=== PATIENT | female | born 1945 | race Two or more races ===

== ENCOUNTER 2019-06-17 23:24 | Inpatient (IN) | payer MEDICARE, OTHER ==
[~2019-06-17] VITALS: Ht 165.1 cm; Wt 75.7 kg
[~2019-06-17 23:24] MED LIST: PALI234D IM
[2019-06-18] MEDS ORDERED: MAG HYDROX/AL HYDROX/SIMETH 30 ML UDC PO PRN
[2019-06-18] MEDS ORDERED: MAGNESIUM HYDROXIDE 30 ML UDC PO PRN
[2019-06-18] MEDS ORDERED: BLOOD SUGAR DIAGNOSTIC 1 EACH STRIP IN ONE
[2019-06-18] MEDS: TEMAZEPAM 7.5 MG CAPSULE PO PRN ×2 (00:58→21:16)
[2019-06-18] MEDS ORDERED: CLOP75TA15 PO (01:15)
[2019-06-18] MEDS ORDERED: ATOR10TA PO (01:49)
[2019-06-18] MEDS ORDERED: METO25TA4 PO (01:49)
[2019-06-18] MEDS ORDERED: ACET-73 PO (01:49)
[2019-06-18] MEDS ORDERED: TRAZ-182 PO (01:49)
[2019-06-18] MEDS ORDERED: BENA20TA9 PO (01:49)
[2019-06-18] MEDS ORDERED: NITR0.4T48 SL (01:49)
[2019-06-18] MEDS ORDERED: DIVA500T54 PO (01:49)
[2019-06-18] MEDS ORDERED: LEVO88TA5 PO (01:49)
[2019-06-18] MEDS ORDERED: QUET300T5 PO (01:49)
[2019-06-18] MEDS ORDERED: POLY17PO4 PO (01:49)
[2019-06-18] MEDS ORDERED: RANO500T3 PO (01:49)
[2019-06-18] MEDS ORDERED: PANT40TA4 PO (01:49)
[2019-06-18] MEDS ORDERED: FAMO20TA8 PO (01:49)
[2019-06-18 02:00] VITALS: BP 141/70
--- NOTE | 2019-06-18 03:36 | NUR ---
GPS RN NOTE: PT IS A 74 Y/O FEMALE DIRECT ADMIT FROM [facility] ON HOLD 5150 PLACED 06/16/2019 @1103 FOR DTS. [facility] STAFF CALLED POLICE OFFICERS TO EVALUATE THIS PT BECAUSE PT STATED " I DON'T FEEL SAFE, I FEEL LIKE I AM GOING TO HURT MYSELF. I FEEL LIKE I AM GOING TO , I DON'T WANT TO BE BE HERE ANYMORE". PER HOLD PT HAS A HX OF MENTAL ILLNESS (SCHIZOPHRENIA, AND BORDERLINE PERSONALITY DISORDER). PT HAS NOT BEEN ABLE TO SLEEP FOR OVER 48 HOURS, AND HAS A HISTORY OF ATTEMPTED SUICIDE BY OVERDOSE. PT IS CONSERVED BY [facility] PUBLIC GUARDIAN IN [facility]. PT RECENTLY HAD MEDICATION CHANGES TO BOTH MEDICAL AND PSYCHIATRIC MEDICATIONS. UPON FACE TO FACE EVALUATION, PT PRESENTS ALERT AND ORIENTED X2, CALM AND COOPERATIVE, TIRED, DISHEVELLED, APPEARS DEPRESSED, GUARDED, REFUSED TO SIGN ADMISSION PAPERS, SKIN CHECK AND ACCU-CHEK DONE AND DOCUMENTED. DENIES SI AT THIS TIME. PT BELONGINGS AND CONTRABAND CHECKED. PT ADVISED OF HOLD, PT RIGHTS DISCUSSED AND PT HAND BOOK PROVIDED. GUIDE TO PRESCRIPTION MEDICATION GIVEN. PT WILL BE UNDER THE CARE OF DR BROWER PSYCHIATRIST AND DR ONOFRE INTERNAL MEDICINE. PT ORIENTED TO UNIT, STAFF, DOCTORS, CARE PLAN AND UNIT POLICIES. DRS NOTIFIED OF PT ADMISSION. MED RECONCILIATION DONE. MRSA DONE. PT IS LPS CONSERVED. PT [facility] PUBLIC GUARDIAN DIPIKA HAGER PHONE NUMBER NOT PROVIDED. PT IS HYPERTENSIVE, HAS A PACE MAKER ON RIGHT CHEST, HAS RENAL INSUFFICIENCY AND DEPRESSION. Q 15 MINUTES CHECK INITIATED, FALL AND SAFETY PRECAUTION INITIATED. PT SLEEPING COMFORTABLY IN BED. NO S/S OF RESPIRATORY DISTRESS. WILL CONTINUE TO MONITOR FOR MOOD, SAFETY AND BEHAVIOR.
[2019-06-18 07:11] LABS: ALBUMIN 2.9 g/dL (3.4-5.0); CREATININE 1.2 mg/dL (0.6-1.3); POTASSIUM 4.8 mmol/L (3.5-5.1); TOTAL PROTEIN, SERUM 5.7 g/dL (6.4-8.2)
[2019-06-18 07:49] LABS: BILIRUBIN,TOTAL 0.2 mg/dL (0.2-1.0)
[2019-06-18 08:00] VITALS: BP 136/69
--- NOTE | 2019-06-18 13:35 | NUR ---
PUBLIC GUARDIAN CONTACT: MARQUIS contacted pts LPS conservator Ivanna Sancho [phone] and requested Detain and Treat and Hilton 6, 7, and 8. Ivanna stated she would fax Detain and Treat and hilton on this present day.
--- NOTE | 2019-06-18 13:41 | NUR ---
TEACHING ASSISTANTELECTRONIC FIELD SERVICE ENGINEER: SW contacted pts classification case manager at [facility] Eden Lee P: [phone] ex: [phone] and left a voicemail for call back.
--- NOTE | 2019-06-18 13:49 | NUR ---
FACILITY CONTACT: MARQUIS contacted Jesse-firewall administrator at [facility] and [address] [address] P: [phone] and left a voicemail for callback.
--- NOTE | 2019-06-18 15:03 | NUR ---
ETCHER ELECTROLYTICASPHALT PATCHER: SW received a call from pts patient case coordinator, Eden Howard P: [phone] ex: [phone] at [facility] who stated she will assist with scheduling follow up psych appointments for pt once stable for discharge.
--- NOTE | 2019-06-18 15:14 | NUR ---
GROUP NOTE: SW encouraged pt to attend group therapy on this present day discussing "suicidal urges." Pt states that she is very sleepy and has no energy to get up from bed, pt states that she has not slept in 3 days. Pt states that her "head is not right." and that she needs it to be fixed so she wont feel hopeless and sad. Pt states she currently does not know if she is having suicidal urges. SW will continue to assess pts level of suicidality until pt is able to verbalize at least twice daily that she no longer is preoccupied with suicidal thoughts.
--- NOTE | 2019-06-18 15:54 | NUR ---
INITIAL DISCHARGE PLAN: Patient wishes to return to [facility] and [address] [address] P: [phone]. MARQUIS contacted Flakitoem-marketing administrator at [address] [address] P: [phone] and left a voicemail for callback to confirm pt is able to return. MARQUIS will help form a safe and proper discharge in collaboration with .
[2019-06-18 16:00] VITALS: BP 100/67
[2019-06-18 17:32] LABS: APPEARANCE,URINE SL CLOUDY (CLEAR); BILIRUBIN,URINE NEGATIVE (NEGATIVE); BLOOD, URINE LARGE Ery/uL (NEGATIVE); COLOR,URINE YELLOW (YELLOW); KETONES,URINE NEGATIVE (NEGATIVE); LEUKOCYTE ESTERASE ,URINE SMALL (NEGATIVE); NITRITE, URINE NEGATIVE (NEGATIVE); PROTEIN,URINE NEGATIVE (NEGATIVE); UGLUCOSE NEGATIVE (NEGATIVE); UROBILINOGEN,URINE 0.2 EU/dL (0.2)
[2019-06-18 17:41] LABS: BACTERIA,URINE Rare /HPF (None Seen); RBC,URINE 21-50 /HPF (0-2); SQUAMOUS EPITHELIAL CELL,UR Few /HPF (None Seen)
[2019-06-18 18:08] VITALS: BP 163/77
[2019-06-18 20:39] VITALS: BP 140/78
[2019-06-18 20:46] VITALS: BP 140/78
[2019-06-18] MEDS: ATORVASTATIN 10 MG TABLET PO SCH (21:16)
[2019-06-18] MEDS: METOPROLOL SUCCINATE 25 MG TAB.SR.24H PO SCH (21:16)
[2019-06-18] MEDS: MIRTAZAPINE 15 MG TABLET PO SCH (21:17)
[2019-06-18] MEDS: clonazePAM 0.5 MG TABLET PO PRN (22:38)
[2019-06-18] MEDS: ACETAMINOPHEN 325 MG TABLET PO PRN (23:02)
[2019-06-19 07:14] LABS: BASOPHILS % (AUTO) 0.6 % (0.0-2.0); EOSINOPHILS % (AUTO) 1.7 % (0.0-6.0); HEMATOCRIT 35 % (33-45); HEMOGLOBIN 11.6 g/dL (11.5-14.8); LYMPHOCYTES # (AUTO) 1.7 /CMM (0.8-4.8); LYMPHOCYTES % (AUTO) 39.1 % (20.0-44.0); MEAN CORPUSCULAR HGB CONC 33 g/dl (31.0-36.0); MEAN CORPUSCULAR VOLUME 96 fL (82-100); MONOCYTES # (AUTO) 0.5 /CMM (0.1-1.30); MONOCYTES % (AUTO) 11.9 % (2.0-12.0); NEUTROPHILS # (AUTO) 2.1 /CMM (1.8-8.9); NEUTROPHILS % (AUTO) 46.7 % (43.0-81.0); PLATELET COUNT (AUTO) 123 /CMM (150-450); RED BLOOD CELL COUNT(AUTO) 3.63 MIL/uL (4.0-5.2); WHITE BLOOD COUNT (AUTO) 4.4 K/uL (4.3-11.0)
[2019-06-19 07:41] LABS: CREATININE 1.1 mg/dL (0.6-1.3); PHOSPHORUS 3.8 mg/dL (2.5-4.9); POTASSIUM 4.1 mmol/L (3.5-5.1)
[2019-06-19 08:00] VITALS: BP 116/83
[2019-06-19] MEDS: PANTOPRAZOLE 40 MG TABLET.DR PO SCH (08:10)
[2019-06-19] MEDS: LEVOTHYROXINE SODIUM 88 MCG TABLET PO SCH (08:10)
[2019-06-19] MEDS: POLYETHYLENE GLYCOL 3350 17 GM POWD.PACK PO SCH (08:13)
[2019-06-19] MEDS: CLOPIDOGREL BISULFATE 75 MG TABLET PO SCH (08:14)
[2019-06-19] MEDS: BENAZEPRIL HCL 20 MG TABLET PO SCH (08:14)
--- NOTE | 2019-06-19 14:12 | NUR ---
GPS RN NOTE: DR BROWER NOTIFIED OF PT ON INVEGA SUSTENNA 234 MG IM Q28 DAYS LAST GIVEN 05/22/19. NO NEW ORDERS AT THIS TIME.
--- NOTE | 2019-06-19 14:46 | NUR ---
PUBLIC GUARDIAN CONTACT: MARQUIS contacted pts Public Guardian Ivanna Kingsley [phone] to inform her documentation received by her is for Probate Conservatorship not LPS Conservatorship. MARQUIS explained that documentation clearly states that pts is under Public Guardianship for Probate Conservatorship not LPS. Ivanna insisted that she only does LPS conservatorship and that the documents she sent are for LPS and not Probate. MARQUIS requested she fax different documentation which indicates LPS Conservatorship including Detain and Treat and Hilton 6, 7, and 8. MARQUIS stated that in the meantime pt will remain on a 5250 hold. Ivanna stated she would consult with her metal extrusion supervisor and return MARQUIS's call. Addendum: 06/19/19 at 1546 by ROSE MARY CHO MARQUIS received probate conservatorship documents with hilton to ensure that pt receives psychiatric treatment and any treatment for grave disability. Ivanna is insisting [place] probate conservatorship can be used in [facility] for admission to our LPS unit.
--- NOTE | 2019-06-19 15:30 | NUR ---
PUBLIC GUARDIAN CONTACT: MARQUIS received a fax from pts Public Guardian Ivanna Kingsley [phone] requesting pt be taken off 5250 hold and placed on voluntary admission. MARQUIS then received a call from her and MARQUIS explained that due to pt being in [facility] patient rights are different here than in [facility] and thus why MD is currently unable to remove pt from her hold and place on voluntary admission. MARQUIS explained that Fixed Capital Clerk is having Director of Patients Rights for [facility] review documents she faxed to determine weather or not the hospital is able to honor her Probate Conservatorship from [facility] as LPS Conservatorship. Ivanna advised MARQUIS that if the hospital does not honor her documents and pt is released once her hold expires, the hospital is liable for pts discharge. MARQUIS explained that MD has now placed pt on a 5250 hold and stated that pt will not be discharged based on hold expiration and rather be discharged based on pts stability and denial of suicidal ideation. MARQUIS informed Ivanna that pt will be safely discharged back to her board and care in [facility] once stable for discharge. Addendum: 06/19/19 at 1547 by ROSE MARY CHO MARQUIS explained that [facility] does not accept probate conservatorship to enter an LPS unit and stated she cannot authorize psychiatric treatment.
--- NOTE | 2019-06-19 15:55 | NUR ---
GROUP NOTE: SW encouraged pt to participate in group therapy on this present day discussing "social supports." S: "Well I have my sister whom I talk to once in a while and some of the ladies that I live with. I also have my case mgr who helps me once in a while." O: Pt appeared with sad affect and depressed mood, Pts tone of voice was low and pt had difficulty maintaining eye contact. A: Pt has gained awareness in verbalizing her social supports. Pt stated, "I did not realize I have people I can talk to." P: SW will continue to assess pts level of suicidality evidenced in pts decreased suicidal urges by verbalization of absence of suicidal ideation at least twice daily.
[2019-06-19 16:00] VITALS: BP 147/79
--- NOTE | 2019-06-19 16:02 | NUR ---
FACILITY CONTACT: MARQUIS contacted Jesse-subcontract administrator at [facility] and [address] [address] P: [phone] who stated pt is able to return once stable for discharge and is looking forward to welcoming pt back to her home.
[2019-06-19 20:25] VITALS: BP 123/88
[2019-06-19] MEDS: ATORVASTATIN 10 MG TABLET PO SCH (21:20)
[2019-06-19] MEDS: MIRTAZAPINE 15 MG TABLET PO SCH (21:20)
[2019-06-19] MEDS: METOPROLOL SUCCINATE 25 MG TAB.SR.24H PO SCH (21:22)
[2019-06-19] MEDS: ACETAMINOPHEN 325 MG TABLET PO PRN (21:56)
--- NOTE | 2019-06-19 21:58 | NUR ---
PRN TYLENOL GIVEN PATIENT C/O LOWER BACK PAIN, 07/27 AT THIS TIME & REQUESTED TO GET TYLENOL. PRN TYLENOL 650 MG PO GIVEN.
[2019-06-19] MEDS: TEMAZEPAM 7.5 MG CAPSULE PO PRN (23:16)
--- NOTE | 2019-06-19 23:18 | NUR ---
PRN RESTORIL GIVEN PATIENT WALKED TO THE NURSE, STATED," I CAN NOT SLEEP, I TRIED BUT I NEED TO TAKE MY SLEEPING MEDICINE". PRN RESTORIL 7.5 MG 1 CAP PO GIVEN. WILL REASSESS FOR EFFECTIVENESS.
[2019-06-20] MEDS: clonazePAM 0.5 MG TABLET PO PRN ×2 (00:45→23:20)
--- NOTE | 2019-06-20 00:48 | NUR ---
PRN KLONOPIN GIVEN PATIENT STATED SHE IS UNABLE TO SLEEP DUE TO ANXIETY & RESTLESSNESS & REQUESTED TO TAKE ANXIETY MEDICINE, PRN KLONOPIN 0.5 MG 1 TAB PO GIVEN. WILL MONITOR CLOSELY.
[2019-06-20] MEDS: ACETAMINOPHEN 325 MG TABLET PO PRN ×3 (04:40→21:43)
--- NOTE | 2019-06-20 04:41 | NUR ---
PRN TYLENOL GIVEN PATIENT STATED SHE HAS LOWER BACK PAIN & WANTED TO TAKE TYLENOL, PRN TYLENOL 650 MG PO GIVEN. WILL CONTINUE TO MONITOR.
[2019-06-20 08:00] VITALS: BP 110/64
[2019-06-20] MEDS: BENAZEPRIL HCL 20 MG TABLET PO SCH (08:47)
[2019-06-20] MEDS: LEVOTHYROXINE SODIUM 88 MCG TABLET PO SCH (08:47)
[2019-06-20] MEDS: PANTOPRAZOLE 40 MG TABLET.DR PO SCH (08:47)
[2019-06-20] MEDS: POLYETHYLENE GLYCOL 3350 17 GM POWD.PACK PO SCH (08:47)
[2019-06-20] MEDS: CLOPIDOGREL BISULFATE 75 MG TABLET PO SCH (08:48)
[2019-06-20 16:00] VITALS: BP 93/60
[2019-06-20 20:07] VITALS: BP 112/73
[2019-06-20] MEDS: ATORVASTATIN 10 MG TABLET PO SCH (21:04)
[2019-06-20] MEDS: MIRTAZAPINE 15 MG TABLET PO SCH (21:04)
[2019-06-20] MEDS: METOPROLOL SUCCINATE 25 MG TAB.SR.24H PO SCH (21:04)
[2019-06-20] MEDS: TEMAZEPAM 7.5 MG CAPSULE PO PRN (21:40)
[2019-06-21 08:00] VITALS: BP 101/67
[2019-06-21] MEDS: BENAZEPRIL HCL 20 MG TABLET PO SCH (09:00)
[2019-06-21] MEDS: PANTOPRAZOLE 40 MG TABLET.DR PO SCH (09:05)
[2019-06-21] MEDS: CLOPIDOGREL BISULFATE 75 MG TABLET PO SCH (09:05)
[2019-06-21] MEDS: POLYETHYLENE GLYCOL 3350 17 GM POWD.PACK PO SCH (09:06)
[2019-06-21] MEDS: LEVOTHYROXINE SODIUM 88 MCG TABLET PO SCH (09:06)
[2019-06-21] MEDS: ACETAMINOPHEN 325 MG TABLET PO PRN ×2 (15:41→22:52)
--- NOTE | 2019-06-21 15:41 | NUR ---
RN-CO: TYLENOL 650 MG PO FOR BACK PAIN.
[2019-06-21 16:00] VITALS: BP 100/66
[2019-06-21 19:49] VITALS: BP 97/72
[2019-06-21] MEDS: ATORVASTATIN 10 MG TABLET PO SCH (21:25)
[2019-06-21] MEDS: MIRTAZAPINE 15 MG TABLET PO SCH (21:27)
[2019-06-21] MEDS: TEMAZEPAM 7.5 MG CAPSULE PO PRN (22:23)
[2019-06-21] MEDS: METOPROLOL SUCCINATE 25 MG TAB.SR.24H PO SCH (22:31)
[2019-06-21] MEDS: clonazePAM 0.5 MG TABLET PO PRN (22:52)
--- NOTE | 2019-06-22 00:25 | NUR ---
RN NOTES: PT COMPLAINED OF BACK PAIN OF 6/10, TYLENOL 325MG, 2 TABS GIVEN PO. ON REASSESSMENT, PT REPORTS PAIN LEVEL OF 2/10. WILL CONTINUE TO MONITOR
--- NOTE | 2019-06-22 06:28 | NUR ---
RN NOTE PT REFUSED BODY CHECK STATING SHE IS TIRED. WILL ENDORSE TO AM SHIFT.
[2019-06-22] MEDS: LEVOTHYROXINE SODIUM 88 MCG TABLET PO SCH (07:50)
[2019-06-22 08:00] VITALS: BP 139/70
[2019-06-22] MEDS: PANTOPRAZOLE 40 MG TABLET.DR PO SCH (08:08)
[2019-06-22] MEDS: BENAZEPRIL HCL 20 MG TABLET PO SCH (08:08)
[2019-06-22] MEDS: CLOPIDOGREL BISULFATE 75 MG TABLET PO SCH (08:08)
[2019-06-22] MEDS: POLYETHYLENE GLYCOL 3350 17 GM POWD.PACK PO SCH (08:09)
--- NOTE | 2019-06-22 13:20 | NUR ---
RN NOTE: PT C/O 5/10 LEFT SIDED CHEST PAIN. VS: 89/54, 103, 95% RA, 18. UNABLE TO GIVE NITRO D/T DECREASED BP. CALL TO JASMYNE. ORDER FOR STAT CHEST X-RAY, EKG AND TROPONIN. REPEAT BP 114/55, 102, 99%, 19.
[2019-06-22 13:25] VITALS: BP 114/55
[2019-06-22] MEDS: ACETAMINOPHEN 325 MG TABLET PO PRN ×2 (13:27→22:12)
[2019-06-22 13:44] VITALS: BP 117/64
--- NOTE | 2019-06-22 15:20 | NUR ---
RN-CO: Repeat troponin after 6 hours as per order to Steve Medina NP.
--- NOTE | 2019-06-22 15:21 | NUR ---
RN NOTE: TROPONIN ELEVATED AT 0.262. NOTIFIED CACHORRO FLETCHER. ORDER TO REPEAT TROPONIN SIX HOURS AFTER INITIAL DRAW AND FOR CARDIAC CONSULT. PT REPORTS DECREASE IN PAIN OF 1/10 AND IS AMBULATING AROUND THE UNIT WITH NO COMPLAINTS. VS REMAIN STABLE.
[2019-06-22 16:00] VITALS: BP 107/58
[2019-06-22 20:36] VITALS: BP 85/53
[2019-06-22] MEDS: ATORVASTATIN 10 MG TABLET PO SCH (21:22)
[2019-06-22] MEDS: MIRTAZAPINE 15 MG TABLET PO SCH (21:22)
[2019-06-22] MEDS: METOPROLOL SUCCINATE 25 MG TAB.SR.24H PO SCH (22:00)
--- NOTE | 2019-06-22 22:12 | NUR ---
PRN TYLENOL GIVEN PATIENT STATED SHE HAS LOWER BACK PAIN 3 & WANTED TO TAKE TYLENOL, PRN TYLENOL 650 MG PO GIVEN. WILL CONTINUE TO MONITOR.
[2019-06-22] MEDS: TEMAZEPAM 7.5 MG CAPSULE PO PRN (22:22)
--- NOTE | 2019-06-22 22:22 | NUR ---
PRN RESTORIL GIVEN PATIENT STATED," I CAN NOT SLEEP, I NEED SLEEPING MEDICINE & IF YOU DON'T GIVE IT TO ME, I WILL TELL THE DOCTOR." PRN RESTORIL 7.5 MG 1 CAP PO GIVEN. VITALS ARE STABLE AT THIS TIME. DENIED ANY CHEST PAIN WELL. WILL MONITOR CLOSELY.
--- NOTE | 2019-06-22 22:35 | NUR ---
PATIENT REFUSED METOPROLOL SUCCINATE ER TAB PATIENT REFUSED METOPROLOL SUCCINATE ER TAB DUE TO DECREASED BP EPISODES, PATIENT'S BP WAS DECREASED DURING AM SHIFT & AT 1999 85/53, 99, 18, 97.7, 98% AT RA. RECHECKED BP & NOTED 111/55, 96, 18, 97.4, 96% AT RA BUT DESPITE OF RISKS & BENEFITS EXPLANATIONS, PATIENT STATED," I DO NOT WANT BP MEDICATION, IT MAKES ME FEEL WEIRD, I FELT WEAK WHEN MY BP WAS LOW & I DON'T MY BP TO BE LOW AGAIN BECAUSE OF THIS MEDICINE." PATIENT WAS GIVEN PLENTY OF PO FLUIDS & SNACKS TOLERATED. DENIED CHEST PAIN AT THIS TIME. NO OTHER SYMPTOMS VERBALIZED BY THE PATIENT. ANXIOUS & RESTLESS AT TIMES. WILL MONITOR CLOSELY FOR ANY CHANGES.
--- NOTE | 2019-06-22 23:28 | NUR ---
GPS RN NOTE PATIENT'S TROPONIN WAS REPEATED & RESULT CAME BACK, DR. ONOFRE WAS NOTIFIED ABOUT TROPONIN RESULT 0.221, REVIEWED MEDS & ORDERED REPEAT TROPONIN IN AM AT 0600. ORDER NOTED & CARRIED OUT. PT. CONTINUED TO DENY CHEST PAIN. BUT KEEP ASKING FOR ALL PRN MEDICATION TO BE GIVEN TO HER. GETS ANXIOUS, RESTLESS, UNCOOPERATIVE AT TIMES. WILL CONTINUE TO MONITOR CLOSELY FOR ANY CHANGES.
[2019-06-22] MEDS: clonazePAM 0.5 MG TABLET PO PRN (23:51)
--- NOTE | 2019-06-22 23:52 | NUR ---
PRN KLONOPIN GIVEN PATIENT STATED SHE IS ANXIOUS & RESTLESS, UNABLE TO SLEEP & WANTED TO TAKE HER ANXIETY MEDICINE. PRN KLONOPIN 0.5 MG 1 TAB PO GIVEN. VITALS ARE 105/62, 87, 20, 97.2, 97% AT RA. DENIED CHEST PAIN, NO OTHER SYMPTOMS VERBALIZED BY THE PT. AT THIS TIME. PT STATED, I FEEL BETTER & I AM MORE AWAKE NOW THAN BEFORE, WEAKNESS GOT BETTER." REMINDED THE PATIENT TO CALL FOR HELP IF NEEDS TO GET OUT OF BED TO PREVENT FALL & PT. VERBALIZED UNDERSTANDING.
[2019-06-23 08:00] VITALS: BP 117/57
[2019-06-23] MEDS: POLYETHYLENE GLYCOL 3350 17 GM POWD.PACK PO SCH (08:38)
[2019-06-23] MEDS: PANTOPRAZOLE 40 MG TABLET.DR PO SCH (08:38)
[2019-06-23] MEDS: BENAZEPRIL HCL 20 MG TABLET PO SCH (08:38)
[2019-06-23] MEDS: LEVOTHYROXINE SODIUM 88 MCG TABLET PO SCH (08:38)
[2019-06-23] MEDS: CLOPIDOGREL BISULFATE 75 MG TABLET PO SCH (08:38)
[2019-06-23] MEDS: ACETAMINOPHEN 325 MG TABLET PO PRN (11:53)
[2019-06-23] MEDS: clonazePAM 0.5 MG TABLET PO PRN (12:49)
[2019-06-23] MEDS: NITROGLYCERIN 0.4 MG/TAB BOTTLE SL PRN ×2 (13:17→13:25)
[2019-06-23 13:25] VITALS: BP 70/33
--- NOTE | 2019-06-23 13:30 | NUR ---
RN-CO: DR ERICKA MILLS MADE AWARE THAT PATIENT IS C/O CHEST PAIN 4/10 NOT RELIEVED BY 3 DOSES OF NITRO GLYCERIN TABLE. BP WAS 83/55,108,17,94%. MD ORDERED TO DISCHARGE PATIENT TO [facility] ER FOR FURTHER EVALUATION. PLACED PATIENT ON [place] POSITION, BP REMAINS UNCHANGED. PATIENT ALSO HAS POOR PO INTAKE IN SPITE OF ENCOURAGEMENT TO DRINK AND EAT. SHE IS ALERT AND ORIENTED X3-4. HOWEVER LOOK PALE AND WEAK.
--- NOTE | 2019-06-23 13:58 | NUR ---
RN-CO: DR BROWER MADE AWARE THAT PATIENT WILL BE DISCHARGE TO E.R. FOR CHEST PAIN. HE ORDERED TO DISCHARGE PATIENT TO ED WELL. CONTINUE PSYCH MEDS UNLESS CONTRAINDICATED.\
--- NOTE | 2019-06-23 14:07 | NUR ---
RN-CO: PRIMARY RN KAVITHA CALLED CONSERVATOR TO LEFT MESSAGE THAT PATIENT WILL BE SEND TO ER FOR LOW BP 85/55, 108,17,08/27.
--- NOTE | 2019-06-23 14:10 | NUR ---
RN-CO: PATIENT WAS DISCHARGED TO ER, WITH PRIMARY RN AND CNC MACHINE SETTER. REPORT WILL BE GIVEN RN TO RN.
--- NOTE | 2019-06-23 14:45 | NUR ---
PUBLIC GUARDIAN CONTACT: MARQUIS contacted pts Public Guardian Ivanna Kingsley [phone] and left a voicemail informing her that pt was transferred to the ED due to chest pains.
[2019-06-23] MEDS ORDERED: RANI150T8 PO (15:01)
== END 2019-06-23 14:12 | disposition short-term general hospital (02) | DRG 885 ==
LOC: GPS 23:24
PROVIDERS: ADMIT Psychiatry & Neurology Psychiatry; ATTEND Nurse Practitioner Acute Care
DX: F33.2 Major depressive disorder, recurrent severe without psychotic features (principal); I21.4 Non-ST elevation (NSTEMI) myocardial infarction; E44.0 Moderate protein-calorie malnutrition; F23 Brief psychotic disorder; F41.9 Anxiety disorder, unspecified; I10 Essential (primary) hypertension; E78.5 Hyperlipidemia, unspecified; F25.9 Schizoaffective disorder, unspecified; R73.9 Hyperglycemia, unspecified; Z68.27 Body mass index [BMI] 27.0-27.9, adult; R01.1 Cardiac murmur, unspecified; Z95.0 Presence of cardiac pacemaker
CPT/HCPCS: 36415; 71045-TC; 80048-TC; 80053-TC; 80061-TC; 81000-TC; 82962-TC; 83735-TC; 84100-TC; 84484-TC; 85025-TC; 87081-TC; 87086-TC; 97116-TC; 97530-TC

== ENCOUNTER 2019-06-23 14:14 | Inpatient (IN) | payer MEDICARE, OTHER ==
[~2019-06-23] VITALS: Ht 162.6 cm; Wt 75.9 kg
[~2019-06-23 14:14] MED LIST changes: +ACET-73 PO; +ATOR10TA PO; +BENA20TA9 PO; +CLOP75TA15 PO; +DIVA500T54 PO; +LEVO88TA5 PO; +METO25TA4 PO; +NITR0.4T48 SL; +PANT40TA4 PO; +POLY17PO4 PO; +QUET300T5 PO
[2019-06-23] MEDS ORDERED: ONDANSETRON HCL/PF 4 MG/2 ML VIAL ONE (14:39)
--- NOTE | 2019-06-23 14:41 | NUR ---
BLOOD DRAWN AND SENT TO LAB FOR TESTING.
[2019-06-23 14:42] LABS: BASOPHILS # (AUTO) 0.1 /CMM (0.0-0.2); BASOPHILS % (AUTO) 1.7 % (0.0-2.0); EOSINOPHILS % (AUTO) 1.3 % (0.0-6.0); HEMATOCRIT 32 % (33-45); HEMOGLOBIN 10.6 g/dL (11.5-14.8); LYMPHOCYTES # (AUTO) 0.8 /CMM (0.8-4.8); LYMPHOCYTES % (AUTO) 16.2 % (20.0-44.0); MEAN CORPUSCULAR HGB CONC 33 g/dl (31.0-36.0); MEAN CORPUSCULAR VOLUME 97 fL (82-100); MONOCYTES # (AUTO) 0.5 /CMM (0.1-1.30); MONOCYTES % (AUTO) 10.5 % (2.0-12.0); NEUTROPHILS # (AUTO) 3.5 /CMM (1.8-8.9); NEUTROPHILS % (AUTO) 70.3 % (43.0-81.0); PLATELET COUNT (AUTO) 171 /CMM (150-450); RED BLOOD CELL COUNT(AUTO) 3.32 MIL/uL (4.0-5.2)
[2019-06-23] MEDS: ONDANSETRON HCL/PF 4 MG/2 ML VIAL IVP ONE ×2 (14:42→14:43)
[2019-06-23] MEDS: IV NS 0.9% 500 ML BAG IV ONE ×2 (14:42→14:43)
--- NOTE | 2019-06-23 14:42 | NUR ---
PT CAME TO ER FROM [facility] C/O L SIDED CHEST PAIN SINCE YESTERDAY. PT STATES THAT IT HAS BEEN INTERMITTEN PAIN. AAOX3. NO SOB. BREATHING EVENLY AND UNLABORED ON ROOM AIR. CONNECTED TO MONITOR.
[2019-06-23 14:48] LABS: CALCIUM, SERUM 8.9 mg/dL (8.5-10.1); CARBON DIOXIDE 26 mmol/L (21-32); CHLORIDE 107 mmol/L (98-107); CREATININE 1.5 mg/dL (0.6-1.3); GLUCOSE 173 mg/dL (74-106); POTASSIUM 4.5 mmol/L (3.5-5.1); SODIUM SERUM 142 mmol/L (136-145); UREA NITROGEN, BLOOD 25 mg/dL (7-18)
--- NOTE | 2019-06-23 14:51 | NUR ---
XRAY AT BEDSIDE.
[2019-06-23] MEDS ORDERED: RANI150T8 PO (15:01)
--- NOTE | 2019-06-23 15:57 | NUR ---
called to give report, nurse says he's busy call back in 5-10minutes.
--- NOTE | 2019-06-23 16:07 | NUR ---
REPORT GIVEN TO MUSA CONNELLY FOR NESHA.
[2019-06-23 16:15] VITALS: BP 110/55
--- NOTE | 2019-06-23 16:15 | NUR ---
RECEIVED PATIENT FROM ER VIA GURNEY. PATIENT IS A/OX 3, ABLE TO MAKE NEEDS KNOWN. NOT IN ANY FORM OF DISTRESS. NO SOB. CHEST PAIN 5/10 DULL,NON RADIATING. OFFERED PAIN MEDICATIONS BUT PATIENT SAID THAT ITS TOLERABLE FOR NOW AND "ILL TAKE IT AT BEDTIME". PLACED ON TELEMONITOR, SR 83. SITUATED THE PATIENT AND ORIENTED IN THE ROOM. SHOWED HOW TO USE THE CALL LIGHT AND INSTRUCTED TO CALL FOR ASSISTANCE. BELONGINGS CHECKED BY MIHAELA MAN, AND NOTED ON THE BELONGINGS FORM. KEPT PATIENT SAFE AND COMFORTABLE. BED IN LOW/LOCKED PSOITION, SIDERAILS UPX2, CALL LIGHT IN REACH. WILL CONTINUE TO MONITOR ACCORDINGLY.
[2019-06-23] MEDS ORDERED: ONDANSETRON HCL/PF 4 MG/2 ML VIAL IVP PRN (18:30)
[2019-06-23] MEDS ORDERED: Z GUARD REMEDY 2 OZ OINT TP PRN (18:30)
[2019-06-23] MEDS ORDERED: TEMAZEPAM 7.5 MG CAPSULE PO PRN (18:39)
--- NOTE | 2019-06-23 19:30 | NUR ---
RN CLOSING NOTES PATIENT IN STABLE CONDITION. ALL NEEDS ATTENDED AND PROVIDED. ASSISTED PATIENT WITH ADLS. KEPT PATIENT SAFE AND COMFORTABLE. BED IN LOW/LOCKED POSITION, SIDERAILS UPX2, CALL LIGHT IN REACH. ENDORSED ACCORDINGLY.
[2019-06-23 20:00] VITALS: BP 95/53
--- NOTE | 2019-06-23 20:13 | NUR ---
SURGICAL APPLIANCES SALESPERSON NOTES RECEIVED PATIENT AWAKE IN BED WITH NO DISTRESS NOTED. CALL LIGHT WITHIN REACH. ONGOING TELE MONITORING SHOWING SR @87 BPM. NO C/O CHEST PAIN OR DISCOMFORT. PERIPHERAL LINE INTACT AND PATENT. BED IN LOW LOCK SETTING WITH BED ALARM ON AND FUNCTIONING PROPERLY. ROOM FREE OF CLUTTER AND BELONGINGS KEPT NEAR BEDSIDE. WILL CONTINUE TO MONITOR.
[2019-06-23] MEDS ORDERED: DIVALPROEX SODIUM 500 MG TABLET.DR PO SCH (22:00)
[2019-06-23] MEDS ORDERED: METOPROLOL SUCCINATE 25 MG TAB.SR.24H PO SCH (22:00)
[2019-06-23] MEDS: MIRTAZAPINE 15 MG TABLET PO SCH (22:09)
[2019-06-23] MEDS: ACETAMINOPHEN 325 MG TABLET PO PRN (22:09)
[2019-06-23] MEDS: ATORVASTATIN 10 MG TABLET PO SCH (22:09)
[2019-06-24 04:00] VITALS: BP 98/49
[2019-06-24] MEDS: ACETAMINOPHEN 325 MG TABLET PO PRN (04:34)
--- NOTE | 2019-06-24 06:15 | NUR ---
PHYSICAL SCIENCES INSTRUCTOR NOTES PATIENT ASLEEP IN BED WITH NO DISTRESS NOTED. CALL LIGHT WITHIN REACH. ALL DUE MEDS GIVEN ORDERED WITH NO ASE. NO FURTHER C/O GENERALIZED PAIN OR DISCOMFORT. PERIPHERAL LINE INTACT AND PATENT. ROOM FREE OF CLUTTER AND BELONGINGS KEPT NEAR BEDSIDE. WILL ENDORSE TO ONCOMING SHIFT.
[2019-06-24 06:43] LABS: EOSINOPHILS % (AUTO) 2.8 % (0.0-6.0); HEMATOCRIT 29 % (33-45); HEMOGLOBIN 9.8 g/dL (11.5-14.8); LYMPHOCYTES # (AUTO) 1.4 /CMM (0.8-4.8); LYMPHOCYTES % (AUTO) 33.6 % (20.0-44.0); MEAN CORPUSCULAR HGB CONC 33 g/dl (31.0-36.0); MEAN CORPUSCULAR VOLUME 97 fL (82-100); MONOCYTES # (AUTO) 0.6 /CMM (0.1-1.30); MONOCYTES % (AUTO) 13.3 % (2.0-12.0); NEUTROPHILS # (AUTO) 2.1 /CMM (1.8-8.9); NEUTROPHILS % (AUTO) 49.3 % (43.0-81.0); PLATELET COUNT (AUTO) 162 /CMM (150-450); RED BLOOD CELL COUNT(AUTO) 3.02 MIL/uL (4.0-5.2); WHITE BLOOD COUNT (AUTO) 4.2 K/uL (4.3-11.0)
[2019-06-24 07:06] LABS: CHOLESTEROL 136 mg/dL (<200); HDL CHOLESTEROL 47 mg/dL (40-60); LDL 61 mg/dL (0-99); THYROID STIMULATING HORMONE 2.985 uIU/mL (0.358-3.74); TRIGLYCERIDES 137 mg/dL (30-150)
[2019-06-24 07:11] LABS: ALANINE AMINOTRANSFERASE 24 U/L (12-78); ALBUMIN 2.4 g/dL (3.4-5.0); ALKALINE PHOSPHATASE 48 U/L (46-116); ASPARTATE AMINOTRANSFERASE 19 U/L (15-37); BILIRUBIN,TOTAL 0.2 mg/dL (0.2-1.0); CALCIUM, SERUM 8.3 mg/dL (8.5-10.1); CARBON DIOXIDE 25 mmol/L (21-32); CHLORIDE 108 mmol/L (98-107); CREATININE 1.4 mg/dL (0.6-1.3); GLUCOSE 106 mg/dL (74-106); MAGNESIUM 2.2 mg/dL (1.8-2.4); POTASSIUM 4.1 mmol/L (3.5-5.1); SODIUM SERUM 141 mmol/L (136-145); TOTAL PROTEIN, SERUM 5.4 g/dL (6.4-8.2); UREA NITROGEN, BLOOD 20 mg/dL (7-18)
--- NOTE | 2019-06-24 07:30 | NUR ---
MANNEQUIN MOUNTER NOTES PT IN BED, ASLEEP, NO SIGN OF PAIN OR DISTRESS, RESPIRATIONS NORMAL, CALL LIGHT WITHIN REACH, KEPT WARM AND COMFORTABLE IN BED.
[2019-06-24 08:00] VITALS: BP 95/40
[2019-06-24] MEDS ORDERED: BENAZEPRIL HCL 20 MG TABLET PO SCH (09:00)
[2019-06-24 09:09] LABS: IRON, SERUM 18 ug/dl (50-175); TOTAL IRON BINDING CAPACITY 225 ug/dl (250-450)
[2019-06-24] MEDS: POLYETHYLENE GLYCOL 3350 17 GM POWD.PACK PO SCH (11:07)
[2019-06-24] MEDS: PANTOPRAZOLE 40 MG TABLET.DR PO SCH (11:07)
[2019-06-24] MEDS: CLOPIDOGREL BISULFATE 75 MG TABLET PO SCH (11:07)
[2019-06-24] MEDS: LEVOTHYROXINE SODIUM 88 MCG TABLET PO SCH (11:07)
[2019-06-24] MEDS: ENOXAPARIN SODIUM 40 MG/0.4 ML DISP.SYRIN SQ SCH (11:08)
[2019-06-24 16:00] VITALS: BP 90/41
--- NOTE | 2019-06-24 18:41 | NUR ---
RN MS NOTES PT AWAKE, ALERT AND ORIENTED, SITTING IN HER BED, STATED THAT SHE IF FEELING BETTER, ABLE TO WALK ALONG THE HALLWAY WITH A WALKER WITH STEADY GAIT, TOLERATES CURRENT DIET, COMPLIANT WITH CARE AND MEDICATIONS, NO BEHAVIOR PROBLEM, REQUESTED MEDICAL RECORDS FROM [facility], PT GAVE CONSENT.
--- NOTE | 2019-06-24 19:10 | NUR ---
MS RN NOTES RECEIVED PT IN BED AWAKE AND ABLE TO MAKE NEEDS KNOWN. PT A/O X3. RESPIRATIONS EVEN AND UNLABORED WITH NO S/S OF ACUTE DISTRESS OR SOB NOTED. NO COMPLAINTS OF PAIN AT THIS TIME. PT NOTED WITH LAC #18G PATENT AND INTACT AND SL. SAFETY MEASURES IN PLACE WITH BED IN LOWEST LOCKED POSITION WITH SIDE RAILS UP X2. CALL LIGHT WITHIN REACH. WILL CONTINUE TO MONITOR.
[2019-06-24 20:39] VITALS: BP 113/61
[2019-06-24] MEDS: ATORVASTATIN 10 MG TABLET PO SCH (21:56)
[2019-06-24] MEDS: METOPROLOL SUCCINATE 25 MG TAB.SR.24H PO SCH (21:56)
[2019-06-24] MEDS: MIRTAZAPINE 15 MG TABLET PO SCH (21:56)
[2019-06-24] MEDS: clonazePAM 0.5 MG TABLET PO PRN (23:22)
--- NOTE | 2019-06-25 07:07 | NUR ---
MS RN NOTES PT IN BED AWAKE AND ABLE TO MAKE NEEDS KNOWN. PT A/O X3. RESPIRATIONS EVEN AND UNLABORED WITH NO S/S OF ACUTE DISTRESS OR SOB THROUGHOUT SHIFT. NO COMPLAINTS OF PAIN AT THIS TIME. PT NOTED WITH LAC #18G PATENT AND INTACT AND SL. SAFETY MEASURES IN PLACE WITH BED IN LOWEST LOCKED POSITION WITH SIDE RAILS UP X2. CALL LIGHT WITHIN REACH. WILL ENDORSE TO ONCOMING NURSE FOR NESHA.
--- NOTE | 2019-06-25 07:20 | NUR ---
MS RN OPENING NOTES RECEIVED PATIENT ASLEEP IN BED, AROUSABLE TO VERBAL AND TACTILE STIMULI. NO SOB. DENIES ANY C/O PAIN NOR DISCOMFORT AT THIS TIME. PER PATIENT SLEPT WELL LAST NIGHT. LEFT AC # 18 SL INTACT AND PATENT. BED IN LOWEST POSITION, LOCKED. BED ALARM ON. BED SIDERAILS UP X2. CALL LIGHT WITHIN REACH.
[2019-06-25 08:00] VITALS: BP 98/70
[2019-06-25] MEDS: LEVOTHYROXINE SODIUM 88 MCG TABLET PO SCH (08:37)
[2019-06-25] MEDS: CLOPIDOGREL BISULFATE 75 MG TABLET PO SCH ×2 (08:37→08:49)
[2019-06-25] MEDS: PANTOPRAZOLE 40 MG TABLET.DR PO SCH (08:37)
[2019-06-25] MEDS: POLYETHYLENE GLYCOL 3350 17 GM POWD.PACK PO SCH (08:46)
[2019-06-25] MEDS: ENOXAPARIN SODIUM 40 MG/0.4 ML DISP.SYRIN SQ SCH (08:50)
[2019-06-25 11:36] LABS: BASOPHILS % (AUTO) 0.8 % (0.0-2.0); HEMATOCRIT 29 % (33-45); HEMOGLOBIN 9.6 g/dL (11.5-14.8); LYMPHOCYTES # (AUTO) 1.1 /CMM (0.8-4.8); LYMPHOCYTES % (AUTO) 30.2 % (20.0-44.0); MEAN CORPUSCULAR HGB CONC 33 g/dl (31.0-36.0); MEAN CORPUSCULAR VOLUME 96 fL (82-100); MONOCYTES # (AUTO) 0.5 /CMM (0.1-1.30); MONOCYTES % (AUTO) 12.5 % (2.0-12.0); NEUTROPHILS % (AUTO) 53.5 % (43.0-81.0); PLATELET COUNT (AUTO) 176 /CMM (150-450); RED BLOOD CELL COUNT(AUTO) 3.05 MIL/uL (4.0-5.2); WHITE BLOOD COUNT (AUTO) 3.8 K/uL (4.3-11.0)
[2019-06-25 12:44] LABS: CALCIUM, SERUM 8.8 mg/dL (8.5-10.1); CREATININE 1.2 mg/dL (0.6-1.3); POTASSIUM 4.3 mmol/L (3.5-5.1)
[2019-06-25 12:50] LABS: ALBUMIN 2.7 g/dL (3.4-5.0); BILIRUBIN,TOTAL 0.2 mg/dL (0.2-1.0); PHOSPHORUS 4.8 mg/dL (2.5-4.9); TOTAL PROTEIN, SERUM 5.2 g/dL (6.4-8.2)
[2019-06-25] MEDS: clonazePAM 0.5 MG TABLET PO PRN ×2 (13:47→22:03)
--- NOTE | 2019-06-25 13:47 | NUR ---
MS RN NOTES PATIENT C/O DIZZINESS, B/P CHECKED LYING 111/69 HR: 79; SITTING 106/70 HR: 81; STANDING 118/70 HR: 86. PER PATIENT, "I'M JUST A LITTLE ANXIOUS AND I GET DIZZY WHEN I DO, I USUALLY TAKE KLONOPIN."
[2019-06-25] MEDS ORDERED: NITROGLYCERIN 0.4 MG/TAB BOTTLE SL ONE (17:00)
[2019-06-25] MEDS ORDERED: METOPROLOL TARTRATE INJ 5 MG/5 ML AMPUL IVP ONE (17:00)
[2019-06-25] MEDS ORDERED: IV NS 0.9% 500 ML IV PRN (17:00)
[2019-06-25] MEDS ORDERED: CT SWABBABLE VALVE TRANS SET 1 EA INFUS.SET MC ONE (17:15)
[2019-06-25] MEDS ORDERED: IOHEXOL-350 100 ML VIAL IV ONE (17:15)
[2019-06-25] MEDS ORDERED: IV NS 0.9% 250 ML IV ONE (17:15)
[2019-06-25] MEDS ORDERED: METOPROLOL TARTRATE INJ 5 MG/5 ML AMPUL ONE (17:18)
--- NOTE | 2019-06-25 17:19 | NUR ---
MS RN NOTES PATIENT OFF UNIT FOR CTCA
--- NOTE | 2019-06-25 18:40 | NUR ---
ICU/RN: Pt s/p CTA. Tolerated well. Metoprolol 5mg IVP x1 administered, Nitroglycerin 0.4 mg SL administered. Unable to scan meds in CT room. Pt c/o lower back pain requesting tylenol. Bedside report given to MARICEL Magallanes for NESHA.
--- NOTE | 2019-06-25 18:44 | NUR ---
MS RN NOTES PATIENT RETURNED FROM [facility], EATING DINNER AT THIS TIME. DENIES ANY C/O PAIN NOR DISCOMFORT.
--- NOTE | 2019-06-25 18:44 | NUR ---
MS RN NOTES OFFERED TYLENOL FOR C/O PAIN PER PATIENT HE WILL TAKE IT LATER ON TONIGHT BEFORE SHE GOES TO BED.
--- NOTE | 2019-06-25 18:46 | NUR ---
MS RN CLOSING NOTES ALERT AND ORIENTED X4. NO S/S OF RESPIRATORY DISTRESS. DENIES ANY C/O CHEST PAIN, N/V. AMBULATORY WITH STEADY GAIT WITH THE USE OF WALKER. BED MOBILITY, INDEPENDENT. LEFT AC # 18 SL INTACT AND PATENT. BED IN LOWEST POSITION, LOCKED. BED ALARM ON. BED SIDERAILS UP X2. CALL LIGHT WITHIN REACH. IN NO APPARENT DISTRESS.
[2019-06-25 20:24] VITALS: BP 140/62
[2019-06-25] MEDS: METOPROLOL SUCCINATE 25 MG TAB.SR.24H PO SCH (21:26)
[2019-06-25] MEDS: MIRTAZAPINE 15 MG TABLET PO SCH (21:26)
[2019-06-25] MEDS: ATORVASTATIN 10 MG TABLET PO SCH (21:26)
[2019-06-25] MEDS: ACETAMINOPHEN 325 MG TABLET PO PRN (21:34)
[2019-06-26 07:18] LABS: BASOPHILS % (AUTO) 0.9 % (0.0-2.0); EOSINOPHILS % (AUTO) 3.2 % (0.0-6.0); HEMATOCRIT 30 % (33-45); LYMPHOCYTES # (AUTO) 1.3 /CMM (0.8-4.8); MEAN CORPUSCULAR HGB CONC 33 g/dl (31.0-36.0); MEAN CORPUSCULAR VOLUME 94 fL (82-100); MONOCYTES # (AUTO) 0.4 /CMM (0.1-1.30); MONOCYTES % (AUTO) 11.7 % (2.0-12.0); NEUTROPHILS # (AUTO) 1.8 /CMM (1.8-8.9); NEUTROPHILS % (AUTO) 49.2 % (43.0-81.0); PLATELET COUNT (AUTO) 187 /CMM (150-450); RED BLOOD CELL COUNT(AUTO) 3.18 MIL/uL (4.0-5.2); WHITE BLOOD COUNT (AUTO) 3.8 K/uL (4.3-11.0)
[2019-06-26 07:27] LABS: CALCIUM, SERUM 8.7 mg/dL (8.5-10.1); CARBON DIOXIDE 25 mmol/L (21-32); CHLORIDE 108 mmol/L (98-107); CREATININE 1.3 mg/dL (0.6-1.3); GLUCOSE 123 mg/dL (74-106); MAGNESIUM 2.1 mg/dL (1.8-2.4); PHOSPHORUS 4.9 mg/dL (2.5-4.9); POTASSIUM 3.9 mmol/L (3.5-5.1); SODIUM SERUM 143 mmol/L (136-145); UREA NITROGEN, BLOOD 16 mg/dL (7-18)
--- NOTE | 2019-06-26 07:36 | NUR ---
RN [id number] NOTES RECEIVED PATIENT IN BED RESTING COMFORTABLY IN MODERATE HIGH BACK REST. A/O X3. NO SIGNS OF DISTRESS NOTED AT THIS TIME. IV ACCESS ON LEFT AC #18, SL. PATENT AND INTACT. SAFETY MEASURES IN PLACE, BED IN LOW LOCKED POSITION WITH SIDE RAILS UP X2. CALL LIGHT WITHIN REACH. WILL CONTINUE TO MONITOR.
[2019-06-26 08:00] VITALS: BP 137/67
[2019-06-26] MEDS: LEVOTHYROXINE SODIUM 88 MCG TABLET PO SCH (08:36)
[2019-06-26] MEDS: PANTOPRAZOLE 40 MG TABLET.DR PO SCH (08:36)
[2019-06-26] MEDS: POLYETHYLENE GLYCOL 3350 17 GM POWD.PACK PO SCH (08:37)
[2019-06-26] MEDS: CLOPIDOGREL BISULFATE 75 MG TABLET PO SCH (08:37)
[2019-06-26] MEDS: ENOXAPARIN SODIUM 40 MG/0.4 ML DISP.SYRIN SQ SCH (08:39)
[2019-06-26] MEDS: METOPROLOL TARTRATE 50 MG TABLET PO SCH ×2 (08:40→21:06)
[2019-06-26] MEDS: ACETAMINOPHEN 325 MG TABLET PO PRN ×2 (11:38→21:11)
[2019-06-26 14:08] LABS: APPEARANCE,URINE SL CLOUDY (CLEAR); BILIRUBIN,URINE NEGATIVE (NEGATIVE); BLOOD, URINE TRACE-INTA Ery/uL (NEGATIVE); COLOR,URINE YELLOW (YELLOW); KETONES,URINE NEGATIVE (NEGATIVE); LEUKOCYTE ESTERASE ,URINE NEGATIVE (NEGATIVE); NITRITE, URINE NEGATIVE (NEGATIVE); PROTEIN,URINE NEGATIVE (NEGATIVE); UGLUCOSE NEGATIVE (NEGATIVE); UROBILINOGEN,URINE 0.2 EU/dL (0.2)
[2019-06-26 14:37] LABS: BACTERIA,URINE Rare /HPF (None Seen); SQUAMOUS EPITHELIAL CELL,UR Few /HPF (None Seen); WBC,URINE 0-2 /HPF (0-3)
[2019-06-26 16:00] VITALS: BP 138/75
--- NOTE | 2019-06-26 18:38 | NUR ---
RN CLOSING NOTES PATIENT IN BED RESTING COMFORTABLY IN MODERATE HIGH BACK REST. A/O X3. NO SIGNS OF DISTRESS NOTED THROUGHOUT THE SHIFT. IV ACCESS ON LEFT AC #18, SL. PATENT AND INTACT. WAITING FOR PSYCH CONSULT. MAY DC TO GPS PER DR. MARIA. SAFETY MEASURES IN PLACE, BED IN LOW LOCKED POSITION WITH SIDE RAILS UP X2. CALL LIGHT WITHIN REACH. WILL ENDORSE TO MILK COLLECTOR NURSE FOR NESHA.
--- NOTE | 2019-06-26 19:30 | NUR ---
MS RN OPENING NOTES PATIENT AWAKE IN BED. A/OX 3. ABLE TO VERBALIZE NEEDS. ON ROOM AIR. NO S/S OF ACUTE RESPIRATORY DISTRESS AND NO COMPLAINTS OF PAIN AT THIS TIME. IV PRESENT ON LEFT AC, SIZE 18, HEP LOCKED. BED LOCKED, SIDE RAILS X2, CALL LIGHT WITHIN REACH. WILL CONTINUE TO MONITOR.
[2019-06-26 20:00] VITALS: BP 114/64
[2019-06-26] MEDS: clonazePAM 0.5 MG TABLET PO PRN (21:05)
[2019-06-26] MEDS: MIRTAZAPINE 15 MG TABLET PO SCH (21:06)
[2019-06-26] MEDS: ATORVASTATIN 10 MG TABLET PO SCH (21:06)
--- NOTE | 2019-06-27 07:13 | NUR ---
MS RN CLOSING NOTES PATIENT ASLEEP IN BED, EASY TO AWAKEN. A/OX3. ON 2L NC. NO S/S OF ACUTE RESPIRATORY DISTRESS AND NO COMPLAINTS OF PAIN AT THIS TIME. IV PRESENT ON LEFT AC, SIZE 18, INTACT & PATENT, HEP LOCKED. BED LOCKED, SIDE RAILS X2, CALL LIGHT WITHIN REACH. WILL ENDORSE TO DAY SHIFT NURSE TO FOLLOW PLAN OF CARE.
--- NOTE | 2019-06-27 07:47 | NUR ---
MS/RN OPENING NOTE Patient is resting in bed, A/O x3, showing no signs of acute distress or SOB at the moment, saturating well on 2L NC. IV line is clean and intact s/l. Patient is able to ambulate with walker. According to shift coordinator RN Luis Alberto, patient has a discharrge order, however, patient is to be consulted with Psych Dr. Rao to possible DC to GPS. Bed is in lowest position, side rails x3, call light is within reach and patient is aware of how to call for assistance when needed. Will continue with plan of care.
[2019-06-27] MEDS: PANTOPRAZOLE 40 MG TABLET.DR PO SCH (08:16)
[2019-06-27] MEDS: LEVOTHYROXINE SODIUM 88 MCG TABLET PO SCH (08:16)
[2019-06-27] MEDS: CLOPIDOGREL BISULFATE 75 MG TABLET PO SCH (08:16)
[2019-06-27] MEDS: ACETAMINOPHEN 325 MG TABLET PO PRN (08:16)
[2019-06-27] MEDS: POLYETHYLENE GLYCOL 3350 17 GM POWD.PACK PO SCH (08:17)
[2019-06-27] MEDS: ENOXAPARIN SODIUM 40 MG/0.4 ML DISP.SYRIN SQ SCH (08:21)
[2019-06-27 08:22] VITALS: BP 122/72
[2019-06-27] MEDS: METOPROLOL TARTRATE 50 MG TABLET PO SCH (08:22)
--- NOTE | 2019-06-27 10:34 | NUR ---
MS/RN NOTE Patient seen by Psych Dr. Xavier. Ok per MD to discharge patient to GPS. Charge nurse made aware.
== END 2019-06-27 12:30 | DRG 280 ==
LOC: ER 14:21 → TELE 15:58 → MED 06-24 11:51
PROVIDERS: ADMIT Nurse Practitioner Acute Care; ATTEND Nurse Practitioner Acute Care
DX: I21.4 Non-ST elevation (NSTEMI) myocardial infarction (principal); N17.0 Acute kidney failure with tubular necrosis; I50.33 Acute on chronic diastolic (congestive) heart failure; I11.0 Hypertensive heart disease with heart failure; I25.10 Atherosclerotic heart disease of native coronary artery without angina pectoris; I25.2 Old myocardial infarction; E78.5 Hyperlipidemia, unspecified; Z88.6 Allergy status to analgesic agent; Z88.8 Allergy status to other drugs, medicaments and biological substances; Z79.02 Long term (current) use of antithrombotics/antiplatelets; Z95.0 Presence of cardiac pacemaker; Z79.899 Other long term (current) drug therapy; D64.9 Anemia, unspecified; E03.9 Hypothyroidism, unspecified; Z95.2 Presence of prosthetic heart valve; E83.39 Other disorders of phosphorus metabolism; F32.9 Major depressive disorder, single episode, unspecified; F39 Unspecified mood [affective] disorder; Z98.61 Coronary angioplasty status
CPT/HCPCS: 36415; 71045-TC; 75574; 80048-TC; 80053-TC; 80061-TC; 81000-TC; 83540-TC; 83735-TC; 84100-TC; 84443-TC; 84484-TC; 85025-TC; 85730-TC; 87081-TC; 93307-TC; G0378; J1650; J2405; J3490; J7040; J7050; Q9967

== ENCOUNTER 2019-06-27 11:32 | Inpatient (IN) | payer MEDICARE, OTHER ==
[~2019-06-27] VITALS: Ht 162.6 cm; Wt 75.7 kg
[~2019-06-27 11:32] MED LIST changes: -PALI234D IM; -QUET300T5 PO; +RANI150T8 PO
--- NOTE | 2019-06-27 12:30 | NUR ---
MS/WEB ARCHITECT NOTE Patient is medically stable for discharge, A/O x4, in no acute distress, saturating 94% on RA. Vital signs WNL. Patient refused skin assessment. All due meds given, all patient needs met. Patient has urinated and made 1 bowel movement, ambulated to bathroom using walker. DC instructions provided, patient verbalized understanding. Patient has all belongings with them. IV line removed, ID band removed. Report given to Stefan CONNELLY at [facility]. is aware of discharge. Patient left unit via wheelchair to GPS.
--- NOTE | 2019-06-27 13:00 | NUR ---
ADMISSION NOTES: ADMITTED THIS 74Y/O FEMALE PATIENT ADMIT FROM [facility]. PT IS CONSERVED. DENIES SI /HI AT THIS TIME, PT. REFUSED INITIAL BLOOD SUGAR CHECK , BOTH MD AWARE AND NOTIFIED OF THE ADMISSION, BELONGINGS CONTRABAND WERE DONE , CONSERVATOR AWARE OF ADMISSION ,PT. RIGHTS DISCUSS BY SALES CORRESPONDENCE CLERK , PROVIDED THE PT. WITH HANDBOOK, AND MEDICATIONS GUIDE, ENVIRONMENTAL SAFETY CHECK DONE, ENCOURAGED PT. VERBALIZED ANY FEELING OR CONCERNS TO STAFF, ORIENTED TO UNIT POLICY, NO ACUTE DISTRESS NOTED,VITAL SIGNS WNL ,DENIES ANY PAIN AT THIS TIME,WILL CONTINUE TO MONITOR FOR Q15 SAFETY AND BEHAVIOR.
--- NOTE | 2019-06-27 13:18 | NUR ---
Called the conservator Neli Kingsley at [phone] for the notification of the admission and left a message to call.
[2019-06-27] MEDS ORDERED: BLOOD SUGAR DIAGNOSTIC 1 EACH STRIP IN ONE (13:30)
[2019-06-27] MEDS ORDERED: MAGNESIUM HYDROXIDE 30 ML UDC PO PRN (13:30)
[2019-06-27] MEDS ORDERED: MAG HYDROX/AL HYDROX/SIMETH 30 ML UDC PO PRN (13:30)
--- NOTE | 2019-06-27 13:44 | NUR ---
Dr. Rao made aware of the admission and with orders.
[2019-06-27 16:00] VITALS: BP 139/78
[2019-06-27] MEDS ORDERED: MISCELLANEOUS MED 1 EA EA PO PRN (18:30)
[2019-06-27] MEDS ORDERED: NITROGLYCERIN 0.4 MG/TAB BOTTLE SL PRN (18:30)
[2019-06-27] MEDS: ACETAMINOPHEN 325 MG TABLET PO PRN (19:24)
[2019-06-27 20:04] VITALS: BP 133/76
[2019-06-27] MEDS: FAMOTIDINE (20 MG) 20 MG TABLET PO SCH (20:55)
[2019-06-27] MEDS: ATORVASTATIN 10 MG TABLET PO SCH (21:08)
[2019-06-27] MEDS: METOPROLOL SUCCINATE 25 MG TAB.SR.24H PO SCH (21:08)
[2019-06-27] MEDS: clonazePAM 0.5 MG TABLET PO PRN (21:50)
[2019-06-28] MEDS: ACETAMINOPHEN 325 MG TABLET PO PRN ×3 (01:30→22:25)
[2019-06-28 08:00] VITALS: BP 125/69
[2019-06-28 08:21] LABS: CHOLESTEROL 160 mg/dL (<200); HDL CHOLESTEROL 45 mg/dL (40-60); LDL 87 mg/dL (0-99); TRIGLYCERIDES 132 mg/dL (30-150)
[2019-06-28 08:27] LABS: BILIRUBIN,TOTAL 0.3 mg/dL (0.2-1.0); CALCIUM, SERUM 9.3 mg/dL (8.5-10.1); CREATININE 1.2 mg/dL (0.6-1.3); POTASSIUM 4.1 mmol/L (3.5-5.1); TOTAL PROTEIN, SERUM 6.2 g/dL (6.4-8.2)
[2019-06-28] MEDS: CLOPIDOGREL BISULFATE 75 MG TABLET PO SCH (08:34)
[2019-06-28] MEDS: LEVOTHYROXINE SODIUM 88 MCG TABLET PO SCH (08:34)
[2019-06-28] MEDS: PANTOPRAZOLE 40 MG TABLET.DR PO SCH (08:34)
[2019-06-28] MEDS: FAMOTIDINE (20 MG) 20 MG TABLET PO SCH ×2 (08:35→21:01)
[2019-06-28] MEDS: POLYETHYLENE GLYCOL 3350 17 GM POWD.PACK PO SCH (08:36)
[2019-06-28 16:00] VITALS: BP 116/58
--- NOTE | 2019-06-28 18:47 | NUR ---
GPS NOTE THE PATIENT COMPLAINED OF SHORTNESS OF BREATHING. ASSESSED THE PATIENT AND NOTED OXYGEN SATURATION IN ROOM AIR IS AT 98%. RESPIRATION REGULAR AND UNLABORED. BLOOD PRESSURE 143/72, PULSE 70, R 18, T 97.9, PAIN LEVEL 0/10. THE PATIENT IS MADE AWARE. THE PATIENT IS ENCOURAGED TO REST IN BED. THE PATIENT IN BED IN NO APPARENT DISTRESS. WILL ENDORSE TO RAIL MAINTENANCE WORKER TO CONTINUE MONITOR THE PATIENT.
[2019-06-28 20:35] VITALS: BP 136/83
[2019-06-28] MEDS: ATORVASTATIN 10 MG TABLET PO SCH (21:01)
[2019-06-28] MEDS: METOPROLOL SUCCINATE 25 MG TAB.SR.24H PO SCH (21:02)
[2019-06-28] MEDS: MIRTAZAPINE 15 MG TABLET PO SCH (22:02)
--- NOTE | 2019-06-28 22:27 | NUR ---
GPS RN NOTES: PT C/O OF HEADACHE. ASKED PT FROM 1-10 TO RATE PAIN. PT STATED, " A 3. MAY I HAVE TYLENOL PLEASE?" OFFERED TYLENOL 650 MG PO PRN ORDERED. PT TOLERATED MEDICATION WELL CONTINUE TO MONITOR.
[2019-06-29] MEDS: clonazePAM 0.5 MG TABLET PO PRN ×3 (00:12→16:45)
--- NOTE | 2019-06-29 00:14 | NUR ---
GPS RN NOTES; PT C/O FEELING ANXIOUS. PT STATED, "I FEEL ANXIOUS RIGHT NOW. CAN I HAVE MY MEDICATION TO HELP ME WITH THIS?" VITALS WNL. OFFERED KLONOPIN 0.5MG PO PRN ORDERED. PT AGREED AND TOLERATED MEDICATION WELL. CONTINUE TO MONITOR.
--- NOTE | 2019-06-29 00:17 | NUR ---
GPS RN NOTES: PT REFUSED WEEKLY BODY CHECK ASSESSMENT PICTURES. PT STATED, "NO. I REFUSED. " EXPLAIN RISKS AND BENEFITS. STILL REFUSED X3 CONTINUE TO MONITOR.
[2019-06-29] MEDS: ACETAMINOPHEN 325 MG TABLET PO PRN ×3 (06:43→19:02)
--- NOTE | 2019-06-29 06:44 | NUR ---
GPS RN NOTES: PT C/O OF BACK PAIN. ASKED PT FROM 1-10 TO RATE PAIN. PT STATED, " A 3. MAY I HAVE TYLENOL PLEASE?" VITALS WNL. OFFERED TYLENOL 650 MG PO PRN ORDERED. PT TOLERATED MEDICATION WELL CONTINUE TO MONITOR.
[2019-06-29 08:00] VITALS: BP 126/51
[2019-06-29] MEDS: LEVOTHYROXINE SODIUM 88 MCG TABLET PO SCH (08:15)
[2019-06-29] MEDS: FAMOTIDINE (20 MG) 20 MG TABLET PO SCH ×2 (08:15→20:57)
[2019-06-29] MEDS: CLOPIDOGREL BISULFATE 75 MG TABLET PO SCH (08:15)
[2019-06-29] MEDS: PANTOPRAZOLE 40 MG TABLET.DR PO SCH (08:15)
--- NOTE | 2019-06-29 08:16 | NUR ---
PSYCHOSOCIAL NOTE: I, Rose Mary Montano SHOP TAILOR, attest to the patients previous psychosocial information dated 06/18/19 Update On Events leading to Admission and Discharge Plan: Pt has returned to [facility] within 4 days of her previous discharge to Med/Surg. The current plan is to continue stabilizing the patient on her medications and [place] [address] P: [phone] with mental health services and home health to ensure the pts safety. The pt appeared to be somnolent and sedated with a depressed mood with flat affect. Pt appeared to be ambulatory, well-groomed and appropriately dressed. Pt is currently denying any suicidal or homicidal ideation as well as any visual or auditory hallucinations. SW will work with the pt and the MD regarding appropriate discharge planning. SW will form a safe and proper discharge. Addendum: 06/29/19 at 0854 by ROSE MARY CHO Upon arousal, pt is agitated refusing to take medications until she sees the doctor and refusing to cooperate. Pt appears to be having somatic complaints as she is stating her chest hurts but has been medically cleared. It also took 3 nursing staff to wake pt up as she was refusing to open her eyes and was not responding to verbal cues. Pt is stating that she wants to leave. Addendum: 06/29/19 at 0857 by ROSE MARY CHO Labile mood with flat affect.
[2019-06-29] MEDS: POLYETHYLENE GLYCOL 3350 17 GM POWD.PACK PO SCH (08:25)
--- NOTE | 2019-06-29 08:27 | NUR ---
BEEF PUSHERPULLMAN CAR CLERK: SW received a call from pts showcase maker, Eden Howard P: [phone] ex: [phone] at [facility] who stated she will assist with scheduling follow up psych appointments for pt once stable for discharge.
--- NOTE | 2019-06-29 08:27 | NUR ---
PUBLIC GUARDIAN CONTACT: MARQUIS contacted pts Public Guardian Ivanna Kingsley [phone] and left a voicemail informing her pt has returned to the psych unit from Med/Surg.
--- NOTE | 2019-06-29 09:02 | NUR ---
FAMILY CONTACT: SW received a call from pts sister Randi [phone] requesting discharge information. SW informed her that pt is not stable for discharge and that that this morning she she was refusing medication. Sister informed SW that pt is on Invega Sustenna and states that when she is off of it she becomes psychotic and begins refusing medication and treatment. SW informed her that pts case management social worker Eden from [facility] did not inform her that pt receives Invega Sustenna. Sister was upset that medication list was not sent with pt and stated that she will call Eden. SW stated that she will call Eden also to inquire about the dosage and last administered date.
--- NOTE | 2019-06-29 09:13 | NUR ---
SANDSTONE SPLITTEROTC CLERK: SW contacted pts manager of case, Eden Howard P: [phone] ex: [phone] at [facility] and left a voicemail inquiring about Invregi Cunningham. SW requested a call back.
--- NOTE | 2019-06-29 10:32 | NUR ---
RN NOTE: PT VISIBLY AGITATED, HOPELESS AND HELPLESS. CRYING AND IRRITABLE. MEDICATED KLONOPIN 0.5 MG. BP 149/62, 82 PULSE.
--- NOTE | 2019-06-29 12:45 | NUR ---
COLLATERAL CONTACT: MARQUIS received a call from Corky [phone] residential service direction at the [facility] requesting discharge information as pts bed is currently on a hold. MARQUIS stated that pt is not stable and will receive an Invega Sustenna injection on this present day. Corky agreed and requested updated information.
[2019-06-29 16:00] VITALS: BP 118/70
--- NOTE | 2019-06-29 17:00 | NUR ---
PATIENT STATED "I FEEL ANXIETY, I NEED MEDICINE", GIVEN KLONIPINE 0.5MG P.O. PATIENT DOES NO S/S OF RESP DISTRESS OR SOB OBSERVED FROM MEDICINE. WILL CONTINUE TO MONITOR FOR SAFETY.
[2019-06-29 20:17] VITALS: BP 131/72
[2019-06-29] MEDS: METOPROLOL SUCCINATE 25 MG TAB.SR.24H PO SCH (21:01)
[2019-06-29] MEDS: MIRTAZAPINE 15 MG TABLET PO SCH (21:01)
[2019-06-29] MEDS: ATORVASTATIN 10 MG TABLET PO SCH (21:01)
[2019-06-29] MEDS: TEMAZEPAM 7.5 MG CAPSULE PO PRN (21:36)
--- NOTE | 2019-06-29 21:38 | NUR ---
RN NOTES: PT VERY ANXIOUS AND SAYS THAT SHE HAS INSOMNIA WHEN SHE IS HERE AT THE HOSPITAL. PT WAS ADMINISTERED RESTORIL 7.5MG PO. WILL CONTINUE TO MONITOR.
[2019-06-30 00:10] VITALS: BP 118/84
[2019-06-30] MEDS: clonazePAM 0.5 MG TABLET PO PRN ×4 (00:10→21:45)
--- NOTE | 2019-06-30 00:13 | NUR ---
RN NOTES: PT COMPLAINING THAT SHE IS VERY ANXIOUS AND THAT SHE IS THINKING ABOUT WHEN SHE CAN GO HOME. RESTORIL ONLY WORKED FOR A LITTLE BIT AND IS AWAKE. PT ADMINISTERED KLONOPIN 0.5MG PO. WILL CONTINUE TO MONITOR.
[2019-06-30] MEDS: ACETAMINOPHEN 325 MG TABLET PO PRN ×4 (01:08→21:39)
--- NOTE | 2019-06-30 01:08 | NUR ---
RN NOTES: PT COMPLAINING OF A HEADACHE AND REQUESTING FOR TYLENOL. PT WAS ADMINISTERED TYLENOL 650MG PO. WILL CONTINUE TO MONITOR.
[2019-06-30] MEDS: LEVOTHYROXINE SODIUM 88 MCG TABLET PO SCH (07:37)
[2019-06-30] MEDS: PANTOPRAZOLE 40 MG TABLET.DR PO SCH (07:37)
[2019-06-30 08:00] VITALS: BP 100/67
[2019-06-30] MEDS: CLOPIDOGREL BISULFATE 75 MG TABLET PO SCH (08:38)
[2019-06-30] MEDS: POLYETHYLENE GLYCOL 3350 17 GM POWD.PACK PO SCH (08:40)
[2019-06-30] MEDS: FAMOTIDINE (20 MG) 20 MG TABLET PO SCH ×2 (08:40→21:31)
--- NOTE | 2019-06-30 08:40 | NUR ---
RN NOTE: PT C/O ANXIETY AND GENERALIZED PAIN. MEDICATED WITH KLONOPIN 0.5 MG PO AND TYLENOL 650 MG
--- NOTE | 2019-06-30 10:00 | NUR ---
FAMILY CONTACT: MARQUIS received a call from pts sister Randi [phone] requesting updated medication information. MARQUIS informed her that pt has not received Invega Sustenna yet as [facility] pharmacy does not carry that medication. MARQUIS also informed her that MD will be making medication adjustments on this present day after he evaluates her. Sister became upset and stated that she needed to speak to the MD regarding pts medication changes. Sister stated that she did not understand why [facility] did not receive a list of her medications once she was transferred from [place]. MARQUIS re-explained that pts mental health provided failed to notify or [facility] staff that pt was receiving monthly injections. MARQUIS informed her that she will contacting [facility] LPS conservator to discuss this matter. Addendum: 06/30/19 at 1030 by ROSE MARY CHO MARQUIS informed her that MD is considering an alternative antipsychotic that is similar to Invega Sustenna and sister became very upset.
--- NOTE | 2019-06-30 10:15 | NUR ---
PUBLIC GUARDIAN CONTACT: SW contacted pts Public Guardian Ivanna Kingsley [phone] and left a voicemail informing her pts sister Randi has been frequently calling and is now wishing to speak to the MD regarding pts medications.
--- NOTE | 2019-06-30 14:55 | NUR ---
INDIVIDUAL MEETING: SW met with pt and discussed her treatment and discharge plan. SW informed her that MD is currently speaking to her sister regarding her medications and also stated that MD will be discussing a similar medication to Airam Cunningham as the hospital does not carry that medication. Pt agreed and stated that she needs her antipsychotic medication and also states that she really wishes to be discharged this week as she misses her home. Pt denies current suicidal ideation but states she continues to feel anxious and depressed.
[2019-06-30] MEDS: risperiDONE 1 MG TABLET PO SCH (15:58)
[2019-06-30 16:00] VITALS: BP 123/66
--- NOTE | 2019-06-30 16:02 | NUR ---
RN NOTE: PT COMPLAINING OF ANXIETY. REQUESTING MEDICATION PT MEDICATED WITH KLONOPIN 0.5 MG
--- NOTE | 2019-06-30 16:10 | NUR ---
GROUP NOTE: SW encouraged pt to attend group on this present day discussing "unstable mood." Pt refused to attend group stating she was not feeling well. MARQUIS met with pt individually earlier in the day.
[2019-06-30 19:45] VITALS: BP 119/77
[2019-06-30] MEDS: ATORVASTATIN 10 MG TABLET PO SCH (21:30)
[2019-06-30] MEDS: MIRTAZAPINE 15 MG TABLET PO SCH (21:31)
[2019-06-30] MEDS: METOPROLOL SUCCINATE 25 MG TAB.SR.24H PO SCH (21:36)
[2019-07-01] MEDS: clonazePAM 0.5 MG TABLET PO PRN ×2 (05:07→21:22)
--- NOTE | 2019-07-01 05:10 | NUR ---
spinner concrete pipe notes Klonopin po given per pt requested, seem getting anxious , educated patient for possible side effect and pt understood well. kept her warm and comfortable at all times. bed alarm set for pt safety. will continue monitoring.
[2019-07-01 08:00] VITALS: BP 120/60
[2019-07-01] MEDS: CLOPIDOGREL BISULFATE 75 MG TABLET PO SCH (08:05)
[2019-07-01] MEDS: PANTOPRAZOLE 40 MG TABLET.DR PO SCH (08:05)
[2019-07-01] MEDS: LEVOTHYROXINE SODIUM 88 MCG TABLET PO SCH (08:05)
[2019-07-01] MEDS: risperiDONE 1 MG TABLET PO SCH ×2 (08:05→16:46)
[2019-07-01] MEDS: FAMOTIDINE (20 MG) 20 MG TABLET PO SCH ×2 (08:05→21:15)
[2019-07-01] MEDS: POLYETHYLENE GLYCOL 3350 17 GM POWD.PACK PO SCH (08:06)
[2019-07-01] MEDS: ACETAMINOPHEN 325 MG TABLET PO PRN ×3 (09:01→22:21)
--- NOTE | 2019-07-01 10:20 | NUR ---
COLLATERAL CONTACT: MARQUIS contacted Corky [phone] residential accounting machine servicer at [facility] and left a voicemail informing him pt will be discharged on Saturday07/04/19 and will need transportation back.
--- NOTE | 2019-07-01 10:24 | NUR ---
COLLATERAL CONTACT: SW received a call from Corky [phone] residential protective services case worker at [facility] stating he cannot provide transportation and stated to call pts case technician.
--- NOTE | 2019-07-01 10:26 | NUR ---
INDUSTRIAL MAINTENANCE MECHANICSUPERINTENDENT METERS: SW contacted pts case monitor, Eden Howard P: [phone] ex: [phone] at [facility] and left a voicemail informing her pt will be discharged on Saturday07/04/19 and will be needing transportation.
--- NOTE | 2019-07-01 15:39 | NUR ---
GROUP NOTE: SW encouraged pt to attend group therapy on this present day discussing "suicidality." Pt was asleep and not easily aroused. SW attempted to wake pt by her name several times but pt did not respond to verbal cues.
[2019-07-01 16:00] VITALS: BP 154/64
--- NOTE | 2019-07-01 19:10 | NUR ---
GPS RN NOTES: CHANGE OF SHIFT Patient is awake, sitting up in bed. A/O x3 appears anxious, denies SOB, tolerating room air. Ambulates independently with walker. Right lower leg discoloration, denies pain. Fall precaution maintained, continue safety check every hour.
[2019-07-01 20:00] VITALS: BP 137/55
[2019-07-01] MEDS: MIRTAZAPINE 15 MG TABLET PO SCH (21:17)
[2019-07-01] MEDS: ATORVASTATIN 10 MG TABLET PO SCH (21:17)
[2019-07-01] MEDS: METOPROLOL SUCCINATE 25 MG TAB.SR.24H PO SCH (21:17)
--- NOTE | 2019-07-01 22:22 | NUR ---
GPS RN NOTES Patient c/o headache, denies nausea no vomiting, no dizziness. PRN Tylenol given, will reassess.
--- NOTE | 2019-07-01 23:30 | NUR ---
GPS RN NOTES: PAIN REASSESSMENT Patient in bed, reports headache relieve with Tylenol, denies nausea, no vomiting.
[2019-07-02] MEDS: ACETAMINOPHEN 325 MG TABLET PO PRN ×3 (05:54→22:05)
--- NOTE | 2019-07-02 05:56 | NUR ---
GPS RN NOTES: PAIN MEDICATION Patient c/o back pain, denies nausea no vomiting. Given PRN Tylenol, will reassess.
--- NOTE | 2019-07-02 06:28 | NUR ---
GPS RN NOTES: END OF SHIFT REPORT Patient is bed, stable oxygen saturation on room air. Given PRN Klonopin for episode of anxiety, behavior improved. Headache, Back pain relieve with PRN Tylenol. Patient is A/O x 3, 7 hours sleep. Hourly rounds, fall precaution maintained. Will endorse to Oncoming RN.
[2019-07-02 08:00] VITALS: BP 129/59
--- NOTE | 2019-07-02 08:09 | NUR ---
PUBLIC GUARDIAN CONTACT: MARQUIS contacted pts Public Guardian Ivanna Kingsley [phone] and left a voicemail informing her pt will be discharged on Saturday07/04/19 and needs transportation arranged back to her board and Care in [place].
--- NOTE | 2019-07-02 08:10 | NUR ---
STENCILING MACHINE TENDERMAC OPERATOR: SW received a voicemail from pts field case manager, Eden Howard P: [phone] ex: [phone] at [facility] stating that she cannot provide transportation for pt and will be contacting pts Public Guardian to arrange transportation.
--- NOTE | 2019-07-02 08:12 | NUR ---
HEALTH INSURANCE SALES AGENTDOUBLER OPERATOR: SW contacted pts case finisher, Eden Howard P: [phone] ex: [phone] at [facility] and left a voicemail informing her SW has called Public Guardian and has left several voicemails and has not received a call back. SW requested a callback.
--- NOTE | 2019-07-02 08:18 | NUR ---
FAMILY CONTACT: MARQUIS contacted pts sister Randi [phone] and informed her pt will be discharged on Saturday07/04/19 and will need transportation back. MARQUIS informed her that she contacted pts Public Guardian, family service caseworker, and esthetician/spa coordinator to inform them and they have stated they cannot assist with transportation. Sister stated she will be contacting Corky esthetician/spa coordinator to arrange transportation.
[2019-07-02] MEDS: PANTOPRAZOLE 40 MG TABLET.DR PO SCH (09:15)
[2019-07-02] MEDS: LEVOTHYROXINE SODIUM 88 MCG TABLET PO SCH (09:15)
[2019-07-02] MEDS: CLOPIDOGREL BISULFATE 75 MG TABLET PO SCH (09:15)
[2019-07-02] MEDS: FAMOTIDINE (20 MG) 20 MG TABLET PO SCH ×2 (09:15→22:04)
[2019-07-02] MEDS: risperiDONE 1 MG TABLET PO SCH ×2 (09:16→16:09)
[2019-07-02] MEDS: POLYETHYLENE GLYCOL 3350 17 GM POWD.PACK PO SCH (09:19)
--- NOTE | 2019-07-02 11:47 | NUR ---
PUBLIC GUARDIAN CONTACT: SW received a call from pts Public Guardian Ivanna Kingsley [phone] providing SW with a contact number for [facility] [phone] for transportation arrangement. Ivanna stated that if SW has issues with scheduling transportation for pt to call pts case resolution specialist Eden.
--- NOTE | 2019-07-02 11:57 | NUR ---
TRANSPORTATION: SW contacted [employer] ([employer]) [phone] to schedule transportation for pts discharge on Saturday07/04/19. Per sales review clerk, pts insurance needs to approve transportation before it can be scheduled. Order Processing Manager states that approval may take a couple for days. Order Processing Manager recommended SW call tomorrow for a status.
--- NOTE | 2019-07-02 14:55 | NUR ---
PUBLIC GUARDIAN CONTACT: SW contact pts Public Guardian Ivanna Kingsley [phone] and informed her VTS is pending transportation as they need approval from pts Medical insurance. Ivanna requested SW's email to include her in a thread with pts other providers for discharge planning purposes.
--- NOTE | 2019-07-02 15:40 | NUR ---
GROUP NOTE: SW encouraged pt to attend group on this present day discussing "discharge planning." Pt was asleep and not easily aroused. SW called pts name and pt was not aroused by verbal cues.
[2019-07-02 16:00] VITALS: BP 115/64
--- NOTE | 2019-07-02 19:20 | NUR ---
RN OPENING NOTES: RECEIVED PATIENT WALKING WITH THE WALKER INSIDE THE ROOM, STEADY, A/O X3. NOT IN PAIN. NO RESPIRATORY DISTRESS. BED IN LOWEST AND LOCKED POSITION.
[2019-07-02 20:00] VITALS: BP 135/73
[2019-07-02] MEDS: ATORVASTATIN 10 MG TABLET PO SCH (22:04)
[2019-07-02] MEDS: clonazePAM 0.5 MG TABLET PO PRN (22:05)
[2019-07-02] MEDS: MIRTAZAPINE 15 MG TABLET PO SCH (22:05)
[2019-07-02] MEDS: METOPROLOL SUCCINATE 25 MG TAB.SR.24H PO SCH (22:07)
[2019-07-03] MEDS: ACETAMINOPHEN 325 MG TABLET PO PRN ×3 (05:07→21:13)
--- NOTE | 2019-07-03 06:44 | NUR ---
RN CLOSING NOTES: PATIENT IN BED, ASLEEP. NO SOB NOTED. AMBULATORY. TYLENOL GIVEN 2X DURING THE SHIFT. BED IN LOWEST AND LOCKED POSITION. AFEBRILE. PATIENT IS CALM.
[2019-07-03 08:00] VITALS: BP 130/56
[2019-07-03] MEDS: risperiDONE 1 MG TABLET PO SCH ×2 (08:31→16:22)
[2019-07-03] MEDS: CLOPIDOGREL BISULFATE 75 MG TABLET PO SCH (08:31)
[2019-07-03] MEDS: PANTOPRAZOLE 40 MG TABLET.DR PO SCH (08:32)
[2019-07-03] MEDS: LEVOTHYROXINE SODIUM 88 MCG TABLET PO SCH (08:32)
[2019-07-03] MEDS: FAMOTIDINE (20 MG) 20 MG TABLET PO SCH ×2 (08:33→21:06)
[2019-07-03] MEDS: POLYETHYLENE GLYCOL 3350 17 GM POWD.PACK PO SCH (08:33)
--- NOTE | 2019-07-03 08:56 | NUR ---
TRANSPORTATION: MARQUIS contacted [employer] ([employer]) [phone] to follow up on authorization. Supervisor [employer] stated that she is unable to access pts authorization and will have a malt liquors sales supervisor call MARQUIS back with an update.
--- NOTE | 2019-07-03 09:02 | NUR ---
BUILDING INSPECTORFABRIC WORKER FOREMAN: MARQUIS contacted pts ed case manager, Eden Howard P: [phone] ex: [phone] at [facility] and left a voicemail informing her [facility] has not yet authorized pts transportation and pts discharge has been pushed back to Saturday07/06/19. MARQUIS asked Eden for assistance with transportation authorization.
--- NOTE | 2019-07-03 09:05 | NUR ---
FAMILY CONTACT: SW contacted pts sister Randi [phone] and asked if she is able to pick pt up, she stated that she is not able to transport pt from [place] to [place].
--- NOTE | 2019-07-03 11:18 | NUR ---
TRANSPORTATION: MARQUIS contacted [employer] ([employer]) [phone] to follow up on authorization. clerk Verna stated that transportation has been authorized and MARQUIS will be receiving a call by 4:00pm to confirm the pick remover time for Saturday07/06/19.
[2019-07-03 16:00] VITALS: BP 112/59
[2019-07-03 20:00] VITALS: BP 128/76
[2019-07-03 20:25] VITALS: BP 128/76
[2019-07-03] MEDS: METOPROLOL SUCCINATE 25 MG TAB.SR.24H PO SCH (21:06)
[2019-07-03] MEDS: ATORVASTATIN 10 MG TABLET PO SCH (21:06)
[2019-07-03] MEDS: MIRTAZAPINE 15 MG TABLET PO SCH (21:06)
[2019-07-03] MEDS: clonazePAM 0.5 MG TABLET PO PRN (21:14)
--- NOTE | 2019-07-03 22:00 | NUR ---
PATIENT IN BED, THEN WENT TO ACTIVITY ROOM, CALM, FLAT AFFECT, NEEDY, DRUG SEEKING, AMBULATES WITH WALKER, DENIES SUICIDAL IDEATION AT THIS TIME, WILL CONTINUE TO MONITOR Q15 MINUTES WITH HELP OF STAFF TO MAINTAIN SAFETY
[2019-07-03] MEDS: TEMAZEPAM 7.5 MG CAPSULE PO PRN (22:49)
--- NOTE | 2019-07-04 06:15 | NUR ---
PATIENT SLEEPING FOR 7 HOURS, WAS COMPLAINING OF INSOMNIA ON ADMISSION. RECEIVED RESTORIL AND KLONOPIN, NO BEHAVIORAL ISSUES DURING SHIFT.
[2019-07-04] MEDS: ACETAMINOPHEN 325 MG TABLET PO PRN ×2 (06:32→21:52)
[2019-07-04 08:00] VITALS: BP 95/59
[2019-07-04] MEDS: risperiDONE 1 MG TABLET PO SCH ×2 (10:32→17:57)
[2019-07-04] MEDS: LEVOTHYROXINE SODIUM 88 MCG TABLET PO SCH (10:32)
[2019-07-04] MEDS: POLYETHYLENE GLYCOL 3350 17 GM POWD.PACK PO SCH (10:32)
[2019-07-04] MEDS: FAMOTIDINE (20 MG) 20 MG TABLET PO SCH ×2 (10:32→21:18)
[2019-07-04] MEDS: PANTOPRAZOLE 40 MG TABLET.DR PO SCH (10:32)
[2019-07-04] MEDS: CLOPIDOGREL BISULFATE 75 MG TABLET PO SCH (10:33)
[2019-07-04] MEDS: clonazePAM 0.5 MG TABLET PO PRN ×2 (14:40→22:47)
--- NOTE | 2019-07-04 14:40 | NUR ---
medicated for anxiety with klonopin.
[2019-07-04 16:07] VITALS: BP 134/75
--- NOTE | 2019-07-04 18:00 | NUR ---
quiet,keeping to self,up and out of rm. several times.no acute distress.
--- NOTE | 2019-07-04 19:30 | NUR ---
RN NOTES: PATIENT WALKING AROUND THE UNIT, EASILY AGITED ,DISHELVED ,PARANOID,NEEDY , DENIES SI/HI/AVH AT THIS TIME,.ENCOURAGED FOR VERBALIZATION OF FEELINGS, SAFETY PRECAUTIONS IMPLEMENTED. INTERACT WITH IN ENGAGED, WILL CONTINUE TO MONITOR Q15MIN ROUNDS FOR SAFETY AND BEHAVIOR.
[2019-07-04 20:10] VITALS: BP 136/46
[2019-07-04] MEDS: ATORVASTATIN 10 MG TABLET PO SCH (21:18)
[2019-07-04] MEDS: MIRTAZAPINE 15 MG TABLET PO SCH (21:18)
[2019-07-04] MEDS: METOPROLOL SUCCINATE 25 MG TAB.SR.24H PO SCH (21:20)
--- NOTE | 2019-07-04 22:49 | NUR ---
RN NOTES: PT. C/O FEELING ANXIOUS , KLONOPIN 0.5 MG PO PRN GIVEN PER PT. REQUEST WILL CONTINUE TO MONITOR.
[2019-07-05] MEDS: TEMAZEPAM 7.5 MG CAPSULE PO PRN (00:31)
--- NOTE | 2019-07-05 00:32 | NUR ---
RN NOTES ; PT. C/O INSOMNIA RESTORIL 7.5 MG PO PRN GIVEN PER PT. REQUEST, WILL CONTINUE TO MONITOR.
[2019-07-05 02:00] VITALS: BP 136/66
--- NOTE | 2019-07-05 06:25 | NUR ---
GPS RN CLOSING NOTE: PATIENT RESTING IN BED ASLEEP, AROUSES EASILY. NO ACUTE DISTRESS NOTED. DENIES PAIN OR DISCOMFORT.COOPERTIVE, NO AGITATION NOTED AT THIS TIME/ BUT EASILY AGITAED. DENIES SI/HI/AVH AT THIS TIME. SAFETY PRECAUTIONS IMPLEMENTED.ENCOURAGED PT. TO VERBALIZED ANY FEELING, WILL CONTINUE TO MONITOR FOR PT'S SAFETY AND BEHAVIOR.
[2019-07-05] MEDS: LEVOTHYROXINE SODIUM 88 MCG TABLET PO SCH (07:53)
[2019-07-05] MEDS: PANTOPRAZOLE 40 MG TABLET.DR PO SCH (07:53)
[2019-07-05 08:00] VITALS: BP 120/57
[2019-07-05] MEDS: ACETAMINOPHEN 325 MG TABLET PO PRN ×2 (08:08→21:43)
--- NOTE | 2019-07-05 08:08 | NUR ---
RN NOTE- PAIN. PT C/O HEADACHE AND BACK PAIN (11/26) . TYLENOL 650 MG GIVEN.
[2019-07-05] MEDS: FAMOTIDINE (20 MG) 20 MG TABLET PO SCH ×2 (08:40→21:39)
[2019-07-05] MEDS: POLYETHYLENE GLYCOL 3350 17 GM POWD.PACK PO SCH (08:40)
[2019-07-05] MEDS: CLOPIDOGREL BISULFATE 75 MG TABLET PO SCH (08:40)
[2019-07-05] MEDS: risperiDONE 1 MG TABLET PO SCH ×2 (08:40→17:15)
[2019-07-05] MEDS: clonazePAM 0.5 MG TABLET PO PRN ×2 (10:36→23:24)
--- NOTE | 2019-07-05 10:36 | NUR ---
RN NOTE- AGITATION/ PT W ANXIETY RESTLESSNESS. KLONOPIN 0.5 MG GIVEN AT THIS TIME
[2019-07-05 16:00] VITALS: BP 115/72
[2019-07-05 20:20] VITALS: BP 147/86
--- NOTE | 2019-07-05 21:44 | NUR ---
PRN TYLENOL GIVEN PATIENT HAD C/O HEADACHE 07/27 & REQUESTED TO GET TYLENOL. PRN TYLENOL 650 MG PO GIVEN ORDERED. WILL CONTINUE TO MONITOR FOR ANY CHANGES.
[2019-07-05] MEDS: MIRTAZAPINE 15 MG TABLET PO SCH (22:06)
[2019-07-05] MEDS: ATORVASTATIN 10 MG TABLET PO SCH (22:06)
[2019-07-05] MEDS: METOPROLOL SUCCINATE 25 MG TAB.SR.24H PO SCH (22:07)
--- NOTE | 2019-07-05 23:25 | NUR ---
GPS RN NOTE: ANXIETY PATIENT VERBALIZED THAT SHE IS FEELING VERY ANXIOUS AT THIS TIME & REQUESTED TO TAKE ANXIETY MEDICINE. PRN KLONOPIN 0.5 MG 1 TAB PO GIVEN. WILL CONTINUE TO MONITOR FOR NAY CHANGES.
[2019-07-06] MEDS: TEMAZEPAM 7.5 MG CAPSULE PO PRN (01:25)
--- NOTE | 2019-07-06 01:26 | NUR ---
PRN RESTORIL GIVEN PATIENT IS UNABLE TO SLEEP, REQUESTED TO GET SLEEPING PILL, RESTORIL 7.5 MG 1 CAP PO GIVEN. WILL REASSESS FOR EFFECTIVENESS.
[2019-07-06] MEDS: ACETAMINOPHEN 325 MG TABLET PO PRN (06:23)
--- NOTE | 2019-07-06 06:24 | NUR ---
PRN TYLENOL GIVEN PATIENT VERBALIZED RIGHT SHOULDER & BACK PAIN 07/27 & REQUESTED TO GET PAIN MEDICINE. PRN TYLENOL 650 MG PO GIVEN ORDERED. WILL ENDORSE TO AM MARICEL.
[2019-07-06] MEDS: LEVOTHYROXINE SODIUM 88 MCG TABLET PO SCH (07:31)
[2019-07-06] MEDS: PANTOPRAZOLE 40 MG TABLET.DR PO SCH (07:31)
[2019-07-06 08:00] VITALS: BP 134/73
[2019-07-06] MEDS: CLOPIDOGREL BISULFATE 75 MG TABLET PO SCH (08:32)
[2019-07-06] MEDS: FAMOTIDINE (20 MG) 20 MG TABLET PO SCH (08:32)
[2019-07-06] MEDS: POLYETHYLENE GLYCOL 3350 17 GM POWD.PACK PO SCH (08:32)
[2019-07-06] MEDS: risperiDONE 1 MG TABLET PO SCH (08:32)
[2019-07-06] MEDS: clonazePAM 0.5 MG TABLET PO PRN (08:34)
--- NOTE | 2019-07-06 08:35 | NUR ---
RN NOTE-AGITATION/ PT W ANXIETY AND RESTLESSNESS. KLONOPIN 0.5 MG GIVEN
--- NOTE | 2019-07-06 10:15 | NUR ---
DISCHARGE NOTE: Pt will be picked up at 11:00am via [employer] [facility] to [facility] [address] [address] P: [phone]. Pts Public Guardian Ivanna Kingsley [phone] has been notified and agrees with discharge plan. Pts mood is euthymic with congruent affect. Pt denied visual/auditory hallucinations and denied suicidal/homicidal ideation. Pt will be following up with case technician Eden Howard at [facility] [address] [place] [address] [address], [place] [address] P:[phone]. faxed clinicals to Eden at F: [phone]. Pt was juiceo given a referral to [facility] Address: [address] [place] [id number] . The multidisciplinary exit care form was done, printed, signed, and given to the patient.
--- NOTE | 2019-07-06 11:22 | NUR ---
RN NOTE- DC NOTE/ PT DC AT THIS TIME VIA JAVIER Randhawa VEHICLE OPERATOR FOR [facility]. [facility]. PT REVIEWED AND VERBALIZED UNDERSTANDING OF DC INSTRUCTIONS. DENIES SI HI VH AT TIME OF DC. VS STABLE, SKIN INTACT. VALUABLES RETURNED AND SIGNED FOR. DC INSTRUCTIONS AND PRESCRIPTIONS PROVIDED TO PT. ID [id number] REMOVED. PT ESCORTED OFF OF UNIT AT THIS TIME.
== END 2019-07-06 11:20 | disposition home or self-care (01) | DRG 885 ==
LOC: GPS 11:32
PROVIDERS: ADMIT Psychiatry & Neurology Psychiatry; ATTEND Internal Medicine
DX: F33.2 Major depressive disorder, recurrent severe without psychotic features (principal); I21.4 Non-ST elevation (NSTEMI) myocardial infarction; E44.1 Mild protein-calorie malnutrition; I25.10 Atherosclerotic heart disease of native coronary artery without angina pectoris; I25.2 Old myocardial infarction; E78.5 Hyperlipidemia, unspecified; I10 Essential (primary) hypertension; Z95.5 Presence of coronary angioplasty implant and graft; Z95.2 Presence of prosthetic heart valve; K21.9 Gastro-esophageal reflux disease without esophagitis; D50.9 Iron deficiency anemia, unspecified; Z88.6 Allergy status to analgesic agent; Z79.899 Other long term (current) drug therapy
CPT/HCPCS: 36415; 80053-TC; 80061-TC; 87081-TC

== ENCOUNTER 2019-07-27 17:41 | Inpatient (IN) | payer MEDICARE, OTHER ==
[~2019-07-27] VITALS: Ht 165.1 cm; Wt 73.9 kg
[~2019-07-27 17:41] MED LIST changes: -BENA20TA9 PO
[2019-07-27 23:15] VITALS: BP 155/84
--- NOTE | 2019-07-27 23:15 | NUR ---
GPS RECEIVING TELLER NOTES: ADMITTED 74 Y/O FEMALE FROM [facility] TO [facility] UNIT. PER 5150 HOLD, PATIENT WAS AGGRESSIVE, PARANOID, DELUSIONAL, AGITATED AT [facility] CARE FACILITY. PT. HAS REPEATEDLY THREATENED RESIDENTS & STAFF STATING, I AM FILLED WITH ANGER." NOT SLEEPING, IRRITABLE, GOING TO OTHER RESIDENT'S ROOMS, THINKS OTHER RESIDENTS ARE STEALING, NOT LETTING ANYONE INTO HER ROOM WHICH IS SHARED. UPON FACE TO FACE ASSESSMENT, PT. IS A & O X 2, CONFUSED, FORGETFUL, AGITATED, DISORGANIZED, PARANOID, SAYING REPEATEDLY," THEY TOOK MY HOUSE, GOOD, THEY TOOK MY HOUSE." UNCOOPERATIVE AT TIMES, RESTLESS, ANXIOUS. BOTH LEGS WEAKNESS NOTED. FALL RISK. PT ORDERED. DENIES SI/HI AT THIS TIME. FULL BODY ASSESSMENT DONE, PHOTOS TAKEN, PLACED IN CHART. IMPAIRED JUDGEMENT, POOR INSIGHT & IMPULSE CONTROL. PT REFUSED TO SIGN CONSENT FORMS, EASILY AGITATED & CONFUSED. ENVIRONMENTAL SAFETY CHECK DONE. BED ALARM ON. BED IN LOW LOCKED POSITION. ORIENTED TO THE UNIT. CHECKED FOR BELONGING AND CONTRABAND. PROVIDED PT W/ HANDBOOK AND MED GUIDE. PT. IS UNDER CARE OF PSYCHIATRIST DR. NIÑO & MEDICAL DR. COLLIER. NO S/S OF RESP DISTRESS NOTED. VITALS WNL. BREATHING EVEN AND UNLABORED. CALL BEE WITHIN REACH. WILL CONTINUE TO MONITOR Q 15 MINS. FOR SAFETY & BEHAVIOR.
--- NOTE | 2019-07-27 23:30 | NUR ---
GPS RN NOTE PATIENT STATED TO NOTIFY HER SISTER LEANN ONLY ABOUT HER ADMISSION AT [facility] AT PHONE NUMBER [phone]. PATIENT ALSO STATED," DON'T CALL MY SISTER AT NIGHT, INFORM HER IN THE MORNING THAT I AM HERE." WILL CALL PATIENT'S SISTER IN AM.
[2019-07-28] MEDS ORDERED: MAGNESIUM HYDROXIDE 30 ML UDC PO PRN
[2019-07-28] MEDS ORDERED: BLOOD SUGAR DIAGNOSTIC 1 EACH STRIP IN ONE
[2019-07-28] MEDS ORDERED: ACETAMINOPHEN 325 MG TABLET PO PRN
[2019-07-28] MEDS ORDERED: LORAZEPAM 0.5 MG TABLET PO PRN
[2019-07-28] MEDS ORDERED: MAG HYDROX/AL HYDROX/SIMETH 30 ML UDC PO PRN
[2019-07-28] MEDS ORDERED: TEMAZEPAM 7.5 MG CAPSULE PO PRN
[2019-07-28] MEDS ORDERED: BENA40TA67 PO (00:21)
[2019-07-28] MEDS ORDERED: QUET400T PO (00:24)
[2019-07-28] MEDS ORDERED: PALI234D IM (00:24)
--- NOTE | 2019-07-28 00:57 | NUR ---
PRN RESTORIL GIVEN PATIENT IS EASILY AGITATED, UNABLE TO SLEEP & STATED," I AM NOT USED TO BE UP AT NIGHT, I NEED TO TAKE RESTORIL." PRN RESTORIL 7.5 MG 1 CAP PO GIVEN. WILL CONTINUE TO MONITOR FOR ANY CHANGES.
--- NOTE | 2019-07-28 01:35 | NUR ---
NOTIFIED POLICE DISTRICT SWITCHBOARD OPERATOR EPIC WAS PAGED & PRIMITIVO BECKER CALLED BACK, REQUESTED MD TO REVIEW HOME MEDS TO DO MED RECON. SAID HE WILL DO MED RECON FOR NEW ADMISSION.
--- NOTE | 2019-07-28 02:37 | NUR ---
SHELL FREEZING MACHINE OPERATOR NUMBER EMT'S GAVE SHELL FREEZING MACHINE OPERATOR NUMBER TO KEEP IN PATIENT'S RECORDS, SRAVANI BRANCHY [phone].
--- NOTE | 2019-07-28 06:30 | NUR ---
DR. NIÑO NOTIFIED CALLED DR. NIÑO & NOTIFIED MD ABOUT PATIENT'S ADMISSION AT [facility], [facility].
--- NOTE | 2019-07-28 07:00 | NUR ---
GPS RN NOTE CALLED LEANN (SISTER) AT [phone] & LEFT VOICEMAIL MESSAGE ABOUT MABEL'S ADMISSION AT [facility].
[2019-07-28 07:38] LABS: BILIRUBIN,TOTAL 0.3 mg/dL (0.2-1.0); CALCIUM, SERUM 8.7 mg/dL (8.5-10.1); CHOLESTEROL 132 mg/dL (<200); CREATININE 1.1 mg/dL (0.6-1.3); HDL CHOLESTEROL 49 mg/dL (40-60); LDL 65 mg/dL (0-99); POTASSIUM 4.1 mmol/L (3.5-5.1); TOTAL PROTEIN, SERUM 5.8 g/dL (6.4-8.2); TRIGLYCERIDES 129 mg/dL (30-150)
[2019-07-28 08:00] VITALS: BP 162/61
--- NOTE | 2019-07-28 09:00 | NUR ---
RN NOTE- PT ANGRY AFFECT, PARANOID IDEATION, ISOLATIVE AT ONSET... PT FINALLY OOB AND OBSERVED ON UNIT. QUIET. PO INTAKE FAIR. SHOWERED. DENIES SI HI AH VH. MONITORING BEHAVIOR
--- NOTE | 2019-07-28 09:42 | NUR ---
PUBLIC GUARDIAN CONTACT: SW contacted pts LPS conservator Ivanna Kingsley [phone] via email ([email or web address] and requested Detain and Treat and Marie 6, 7, and 8.
--- NOTE | 2019-07-28 10:06 | NUR ---
FACILITY CONTACT: MARQUIS contacted Jesse-firewall administrator at [facility] and [address] [address] P: [phone] and left a voicemail for callback.
--- NOTE | 2019-07-28 10:08 | NUR ---
CLEANER WINDOWPUBLIC RELATIONS PLAYER: SW received a call from pts pillowcase sewer, Eden Howard P: [phone] ex: [phone] at [facility] and left a voicemail for callback to discuss pts discharge plan.
--- NOTE | 2019-07-28 10:36 | NUR ---
PUBLIC GUARDIAN CONTACT: SW received Detain and Treat and Marie 6, 7, and 8 from LPS conservator Ivanna Kingsley [phone] via email ([email or web address] documentation has been placed in pts chart and pts legal status has been changed to LPS CONSERVED.
--- NOTE | 2019-07-28 11:22 | NUR ---
INITIAL DISCHARGE PLAN: Pt currently resides at [facility] Address: [address] [place] [address] P: [phone]. Pt does not wish to return and states she wishes to be discharged to a local SNF as she does no longer want to live in [place]. SW will help form a safe and proper discharge in collaboration with MD and pts LPS conservator and case liner.
[2019-07-28] MEDS ORDERED: MISCELLANEOUS MED 1 EA EA PO PRN (11:30)
[2019-07-28] MEDS: METOPROLOL SUCCINATE 25 MG TAB.SR.24H PO SCH (11:54)
--- NOTE | 2019-07-28 13:08 | NUR ---
FACILITY CONTACT: SW received a call from Jesse-commercial administrator at [facility] and [address] [address] P: [phone] stating that pt is no longer able to return to the facility as pts behavior is difficult to manage and is a danger to the other residents. Per Jesse, she states pt was harassing other residents being verbally abusive, paranoid, and refusing care. She states pt has been very symptomatic ever since her outside psychiatrist began changing her medication. She states that pt needs a higher level of care for stabilization.
[2019-07-28 16:00] VITALS: BP 165/98
--- NOTE | 2019-07-28 16:05 | NUR ---
GROUP NOTE: SW encouraged pt to attend group therapy on this present day discussing "insight into mental illness." Pt was asleep and was not easily aroused by verbal cues.
[2019-07-28 20:41] VITALS: BP 143/74
--- NOTE | 2019-07-28 21:51 | NUR ---
GPS-RN NOTE: ACCIDENTALLY PULLED OUT SEROQUEL 200MG PO INSTEAD OF 600MG. RETURN TO BIN SEROQUEL 200MG PO. CHARGE NURSE LUPE OVERRIDE MED AND PULLED OUT SEROQUEL 600MG PO. NURSE TIMBER CRUISER TRA MADE AWARE. Addendum: 07/28/19 at 2215 by BRADFORD MORALES RN RETURNED TO BIN 200MG PO
[2019-07-28] MEDS ORDERED: DIVALPROEX SODIUM 250 MG TABLET.DR PO SCH (22:00)
[2019-07-28] MEDS ORDERED: QUETIAPINE FUMARATE 100 MG TABLET PO SCH (22:00)
[2019-07-28] MEDS ORDERED: ATORVASTATIN 10 MG TABLET PO SCH (22:00)
[2019-07-29] MEDS ORDERED: LEVOTHYROXINE SODIUM 88 MCG TABLET PO SCH (07:30)
[2019-07-29] MEDS ORDERED: PANTOPRAZOLE 40 MG TABLET.DR PO SCH (07:30)
[2019-07-29 08:00] VITALS: BP 137/57
[2019-07-29] MEDS ORDERED: BENAZEPRIL HCL 10 MG TABLET PO SCH (09:00)
[2019-07-29] MEDS ORDERED: CLOPIDOGREL BISULFATE 75 MG TABLET PO SCH (09:00)
--- NOTE | 2019-07-29 09:00 | NUR ---
RN NOTE- PT OOB IN ROOM. PO INTAKE GOOD. ARGUMENTIVE REGARDING MORNING RX BUT MED COMPLIANT. POOR EYE CONTACT AND ANGRY AFFECT. DENIES SI HI AH VH. DISMISSED RN WITH WAVE OF HAND 'YOU CAN GO'. MONITORING FOR BEHAVIOR CHANGES AND INTERACTION ENCOURAGED
[2019-07-29 09:15] VITALS: BP 137/57
[2019-07-29] MEDS: METOPROLOL SUCCINATE 25 MG TAB.SR.24H PO SCH (09:15)
--- NOTE | 2019-07-29 10:28 | NUR ---
FACILITY CONTACT: MARQUIS contacted MARICEL Núñez from [facility] [phone] who contacted [facility] intake department to request transfer to their facility. MARQUIS stated she would contact pts LPS Conservator for approval.
--- NOTE | 2019-07-29 10:34 | NUR ---
PUBLIC GUARDIAN CONTACT: MARQUIS contacted pts LPS conservator Ivanna Kingsley [phone] via email ([email or web address] to inform her about hospital transfer, she states that she wishes for pt be transferred to [facility] in [place]. MARQUIS requested transportation be arranged by her. Addendum: 07/29/19 at 1037 by ROSE MARY CHO Ivanna cook [facility] will arrange transportation.
--- NOTE | 2019-07-29 11:03 | NUR ---
FACILITY CONTACT: MARQUIS faxed clinicals to MARICEL Núñez from [facility] [phone] .
--- NOTE | 2019-07-29 13:11 | NUR ---
PER STORES DESPATCH HAND THE CONSERVATOR [address] [address] WISHES FOR PT. TO BE TRANSFERRED TO [facility] IN [place]. PT. IS UNDER THE SERVICES OF THE PSYCHIATRIST DR. KALYN LOW ([phone]) AND THE METAL BED ASSEMBLER DR. BAIG ([phone]). DR. BROWER MADE AWARE AND GAVE AN ORDER TO D/C PT. TO [facility] F[facility] AND TO CONTINUE SAME MEDS INCLUDING PRN.
--- NOTE | 2019-07-29 14:10 | NUR ---
RN NOTE/ DISCHARGE NOTE- PT DC AT THIS TIME VIA PRIVATE AUTOMOBILE FROM [facility] [address] [place] [phone]. . REPORT CALLED TO ARNAV AT FACILITY. PT DC WITH VS STABLE B/P- 137/57, HR- 80, RR- 18, TEMP- 98.0, SATURATION 99% RA. PT ALERT ORIENTED TO PERSON ONLY. DENIES SI HI AH VH AT THIS TIME. VALUABLES RETURNED AND SIGNED FOR, DC INSTRUCTIONS REVIEWED W STAFF LEGUILLON DEBEADER AND UNDERSTANDING VERBALIZED. PT WRISTBAND ID REMOVED AND ESCORTED FROM FACILITY VIA WHEELCHAIR BY THIS RN. Addendum: 07/29/19 at 1436 by [address] HULL RN DR DE LOS SANTOS NOTIFIED OF DISCHARGE AND ORDERED ALL MEDS TO BE CONTINUED. COMPLIED WITH ORDER.
--- NOTE | 2019-07-29 14:48 | NUR ---
DISCHARGE NOTE: Pt was discharged at 2:00pm via [facility] Transportation to [facility] Address: [address] [place], [place] [id number] . [facility] conservator Ivanna Kingsley [phone] has been notified and confirmed transfer. Pt will continue with inpatient psychiatric treatment under the care of Psychiatrist: Dr. Tricai Razo Address: [address] [place] [id number] . Pt was cooperative and mood was depressed/paranoid with congruent affect.
== END 2019-07-29 14:10 | DRG 885 ==
LOC: GPS 22:43
PROVIDERS: ADMIT Psychiatry & Neurology Psychiatry; ATTEND Internal Medicine
DX: F25.9 Schizoaffective disorder, unspecified (principal); F29 Unspecified psychosis not due to a substance or known physiological condition; F41.9 Anxiety disorder, unspecified; I25.10 Atherosclerotic heart disease of native coronary artery without angina pectoris; I10 Essential (primary) hypertension; E78.5 Hyperlipidemia, unspecified; D50.9 Iron deficiency anemia, unspecified; K21.9 Gastro-esophageal reflux disease without esophagitis; G47.00 Insomnia, unspecified; Z95.2 Presence of prosthetic heart valve; Z79.01 Long term (current) use of anticoagulants; Z79.899 Other long term (current) drug therapy; F32.9 Major depressive disorder, single episode, unspecified
CPT/HCPCS: 36415; 80053-TC; 80061-TC; 82962-TC; 87081-TC; 97116-TC; 97530-TC